=== PATIENT | male | born 1955 | race Caucasian/White ===

== ENCOUNTER → 2016-11-15 | Day surgery (SDC) | payer BC ==
[~2016-11-15] VITALS: Ht 190.5 cm; Wt 111.4 kg
[~2016-11-15] MED LIST: GLUCTAB7 PO; OMEG10007 PO; SIMV40TA2 PO; SODIUM CHLORIDE 0.9% 500ML 500 ML IV ONE
[2016-11-15 13:21] VITALS: Ht 190.5 cm; Wt 111.4 kg
[2016-11-15 13:33] VITALS: TEMP 36.4
--- NOTE | 2016-11-15 13:53 | Endo History and Physical ---
History & Physical Date of Service: Nov 15, 2016. Chief Complaint: SCREENING COLONOSCOPY Referring Physician: DR. ORTEGA History of Present Illness 61 yo CM who presents for screening colonoscopy. Past Surgical History Hx Cardiac Surgery: No Hx Internal Defibrillator: No Hx Pacemaker: No Hx Abdominal Surgery: Yes (ABDOMINAL SURGERY AGE 5 OR 6) Hx of Implantable Prosthesis: No Hx Post-Op Nausea and Vomiting: No Hx Cancer Surgery: No Hx Thoracic Surgery: No Hx Orthopedic: No Hx Urinary Tract Surgery: Yes (VASECTOMY) Family History None Social History Smoking Status: Light Tobacco Smoker Hx Substance Use: No Hx Alcohol Use: Yes (OCCASIONAL) Allergies Coded Allergies: No Known Allergies (Unverified , 11/15/16) Current Medications Reported Home Medications Medications Dose Route/Sig Max Daily Dose Days Date Category Glucosamine Chondroitin (Tmlfalgolgg-Zszqflhkyqi-Qxr C-) 1 Tab Tab 2 Tabs PO QAM 11/06/16 Reported [place]-3 (Fish Oil) 1 Ea Cap 2 Cap PO QAM 11/06/16 Reported Zocor (Simvastatin) 40 Mg Tab 40 Mg PO HS 11/06/16 Reported Vital Signs Weight (Kilograms): 111.36 Height (Feet): 6 Height (Inches): 3 Date Time Temp Pulse Resp B/P Pulse Ox O2 Delivery O2 Flow Rate FiO2 11/15/16 13:33 36.4 70 18 122/91 96 Room Air Physical Exam General Appearance: WD/WN, no apparent distress Respiratory/Chest: Auscultation: breath sounds normal Cardiovascular: Heart Auscultation: RRR Abdomen: Bowel Sounds: normal Inspection & Palpation: soft, non-distended, no tenderness, guarding & rebound Assessment and Plan Assessment: 61 yo CM who presents for screening colonoscopy. Plan: Proceed with colonoscopy.
--- NOTE | 2016-11-15 14:39 | GI REPORT ---
Procedure Date: 11/15/2016 1:41 PM Procedure: Colonoscopy Indications: Screening for colorectal malignant neoplasm Medicines: Monitored Anesthesia Care Complications: No immediate complications. Estimated Blood Loss: Estimated blood loss: none. Procedure: Pre-Anesthesia Assessment: - Prior to the procedure, a History and Physical was performed, and patient medications and allergies were reviewed. The patient's tolerance of previous anesthesia was also reviewed. The risks and benefits of the procedure and the sedation options and risks were discussed with the patient. All questions were answered, and informed consent was obtained. Prior Anticoagulants: The patient has taken no previous anticoagulant or antiplatelet agents. ASA Grade Assessment: II - A patient with mild systemic disease. After reviewing the risks and benefits, the patient was deemed in satisfactory condition to undergo the procedure. After I obtained informed consent, the scope was passed under direct vision. Throughout the procedure, the patient's blood pressure, pulse, and oxygen saturations were monitored continuously. The scope was introduced through the anus and advanced to the terminal ileum. The colonoscopy was performed without difficulty. The patient tolerated the procedure well. The quality of the bowel preparation was fair. The terminal ileum, ileocecal valve, appendiceal orifice, and rectum were photographed. Findings: Two sessile polyps were found in the rectum. The polyps were 2 to 3 mm in size. These polyps were removed with a cold biopsy forceps. Resection and retrieval were complete. Non-bleeding internal hemorrhoids were found during retroflexion. The hemorrhoids were small. A moderate amount of liquid stool was found in the transverse colon and in the ascending colon, interfering with visualization. Lavage of the area was performed using a large amount of normal saline, resulting in clearance with fair visualization. Impression: - Two 2 to 3 mm polyps in the rectum, removed with a cold biopsy forceps. Resected and retrieved. - Non-bleeding internal hemorrhoids. - Stool in the transverse colon and in the ascending colon. Recommendation: - Resume previous diet. - Continue present medications. - Repeat colonoscopy for surveillance based on pathology results. - Return to primary care physician as previously scheduled. Nabeel Watson DO 11/15/2016 2:39:19 PM This report has been signed electronically. Note Initiated On: 11/15/2016 1:41 PM I attest to the content of the Intraoperative Record and orders documented therein, exceptions below
--- NOTE | 2016-11-15 14:44 | Discharge Instructions ---
Endoscopy Patient Instructions Date / Procedure(s) Performed Nov 15, 2016. Colonoscopy Allergy Information Coded Allergies: No Known Allergies (Unverified , 11/15/16) Discharge Date / Findings Nov 15, 2016. Rectal polyps x2 Internal hemorrhoids Medication Instructions OK to resume all medications today as prescribed Reported Home Medications Medications Dose Route/Sig Max Daily Dose Days Date Category Glucosamine Chondroitin (Fy[place]ugskv-Crdovcusgjp-Zba C-) 1 Tab Tab 2 Tabs PO QAM 11/06/16 Reported [place]-3 (Fish Oil) 1 Ea Cap 2 Cap PO QAM 11/06/16 Reported Zocor (Simvastatin) 40 Mg Tab 40 Mg PO HS 11/06/16 Reported Provider Instructions Activity Restrictions - No exercising or heavy lifting for 24 hours. - Do not drink alcohol the day of the procedure. - Do not drive a car or operate machinery until the day after the procedure. - Do not make any important decisions or sign important papers in 24 hours after the procedure. Following Day: - Return to full activity which may include returning to work/school. Diet Start your diet with liquids and light foods (jello, soup, juice, toast). Then eat your usual diet if not nauseated. Treatment For Common After Affects For mild abdominal pain, bloating, or excessive gas: - Rest - Eat lightly - Lie on right side Follow-Up Information Follow-up with DR. ORTEGA as scheduled Anesthesia Information What You Should Know You have had a procedure that required some medicine to reduce anxiety and discomfort. This treatment is called moderate sedation. After receiving the treatment, you may be sleepy, but you will be able to breathe on your own. The effects of the treatment may last for several hours. Follow these instructions along with Activity/Diet recommendations noted above: * Do NOT do anything where dizziness or clumsiness would be dangerous. * Rest quietly at home today, then you can be up and about tomorrow. * Have a responsible person stay with you the rest of today. * You may have had an I.V. today. If so, you may take the dressing off later today. Recommendations Call your doctor if: * Trouble breathing * Continuous vomiting for more than 24 hours * Temperature above 101 degrees * Severe abdominal pain or bloating * Pain not relieved by pain medicine ordered * There is increased drainage or redness from any incision * A large amount of rectal bleeding greater than 2-3 tablespoons. (If you had a polyp/s removed or have hemorrhoids, a small amount of blood - from the rectum is to be expected.) * You have any unanswered questions or concerns. IN THE EVENT OF A SERIOUS EMERGENCY, GO TO THE NEAREST EMERGENCY ROOM Your discharge instructions were prepared by provider Nabeel Watson. Patient Instructions Signature Page David Shipman Patient (or Guardian) Signature/Date: I have read and understand the instructions given to me by my caregivers. Caregiver/RN/Doctor Signature/Date: The above-named patient and/or guardian has received patient instructions on this date. + Original Patient Signature Page (only) stays with chart. Please make copy for patient.
[2016-11-15 14:50] VITALS: BP 126/78; PULSE 63; O2SAT 97
--- NOTE | 2016-11-15 14:59 | Anesthesiology Progress Note ---
Anesthesia Post Op Note Date & Time Nov 15, 2016 at 14:58 Vital Signs Pain Intensity: 0 Vital Signs Past 12 Hours Date Time Temp Pulse Resp B/P Pulse Ox O2 Delivery O2 Flow Rate FiO2 11/15/16 14:35 62 18 123/75 97 Room Air 11/15/16 14:20 65 18 128/75 96 Room Air 11/15/16 13:33 36.4 70 18 122/91 96 Room Air Notes Mental Status: alert / awake / arousable, participated in evaluation Pt Amnestic to Procedure: Yes Nausea / Vomiting: adequately controlled Pain: adequately controlled Airway Patency, RR, SpO2: stable & adequate BP & HR: stable & adequate Hydration State: stable & adequate Anesthetic Complications: no major complications apparent
== END | disposition home or self-care (01) ==
LOC: C.GI 12:45
PROVIDERS: ATTEND Internal Medicine
DX: Z12.11 Encounter for screening for malignant neoplasm of colon (principal); D12.8 Benign neoplasm of rectum; Z72.0 Tobacco use; K64.8 Other hemorrhoids

== ENCOUNTER → 2017-01-05 | Outpatient (CLI) | payer BC ==
[~2017-01-05] MED LIST changes: -SODIUM CHLORIDE 0.9% 500ML 500 ML IV ONE
[2017-01-05 12:29] LABS: BASO % 0.9 %; BASO ABS # 0.07 K/uL (0-0.2); COMPLETE YES; EOS % 4.7 %; HEMATOCRIT 45.7 % (42-52); IG% 0.5 %; LYMPH % 22.6 %; LYMPH ABS # 1.83 K/uL (1.2-3.4); MEAN CORPUSCULAR HEMOGLOBIN 30.8 pg (25-34); MEAN CORPUSCULAR HGB CONC 33.5 g/dl (32-36); MEAN PLATELET VOLUME 9.9 fL (7.4-10.4); MONO % 11.4 %; NEUT % 59.9 %; PLATELET COUNT 206 K/uL (130-400); RED BLOOD COUNT 4.97 M/uL (4.7-6.1); WHITE BLOOD COUNT 8.08 K/uL (4.8-10.8)
[2017-01-05 12:55] LABS: BLOOD UREA NITROGEN 26 mg/dl (7-18); BUN/CREATININE RATIO 17.5 (10-20); CARBON DIOXIDE 27 mmol/L (21-32); CHLORIDE 107 mmol/L (98-107); CHOLESTEROL 141 mg/dl (0-200); GLUCOSE 91 mg/dl (70-99); POTASSIUM 4.8 mmol/L (3.5-5.1); SODIUM 140 mmol/L (136-145)
[2017-01-05 13:05] LABS: CALCIUM 9.4 mg/dl (8.5-10.1)
[2017-01-05 13:10] LABS: ALB/GLOB RATIO 1.3 (0.9-2); ALKALINE PHOSPHATASE 103 U/L (45-117); ALT/SGPT 35 U/L (12-78); AST/SGOT 25 U/L (15-37); CHOLESTEROL/HDL RATIO 3.1; HDL CHOLESTEROL 45 mg/dl; LDL CHOLESTEROL CALCULATED 74 mg/dl; PROSTATE SPECIFIC ANTIGEN 0.509 ng/ml (0.000-4.000); TRIGLYCERIDES 109 mg/dl (0-150); VERY LOW DENSITY LIPOPROT CALC 22 mg/dl
== END | disposition home or self-care (01) ==
LOC: C.LABBFT 07:40
PROVIDERS: ATTEND Internal Medicine
DX: N28.9 Disorder of kidney and ureter, unspecified (principal); Z12.5 Encounter for screening for malignant neoplasm of prostate; M10.9 Gout, unspecified; E78.5 Hyperlipidemia, unspecified; I10 Essential (primary) hypertension

== ENCOUNTER → 2017-04-17 | Outpatient (CLI) | payer BC ==
[2017-04-17 13:15] LABS: BLOOD UREA NITROGEN 24 mg/dl (7-18); BUN/CREATININE RATIO 19.6 (10-20); CALCIUM 8.9 mg/dl (8.5-10.1); CARBON DIOXIDE 26 mmol/L (21-32); CHLORIDE 109 mmol/L (98-107); GLUCOSE 95 mg/dl (70-99); POTASSIUM 4.1 mmol/L (3.5-5.1); SODIUM 141 mmol/L (136-145)
== END | disposition home or self-care (01) ==
LOC: C.LABBFT 08:07
PROVIDERS: ATTEND Internal Medicine
DX: N28.9 Disorder of kidney and ureter, unspecified (principal)

== ENCOUNTER 2020-01-17 03:04 | Inpatient (IN) ==
[2020-01-17 04:14] LABS: Basophils # (auto) 0.02 K/uL (0-0.2); Basophils % (auto) 0.1 %; Eosinophils # (auto) 0.08 K/uL (0-0.5); Eosinophils % (auto) 0.6 %; Hematocrit (blood only) 46.2 % (42-52); Hemoglobin 15.4 g/dL (14.0-18.0); Immature Granulocytes # (auto) 0.08 K/uL (0.00-0.02); Immature Granulocytes % (auto) 0.6 %; Lymphocytes # (auto) 1.03 K/uL (1.2-3.4); Lymphocytes % (auto) 7.2 %; Mean Corpuscular Hemoglobin 30.7 pg (25-34); Mean Corpuscular Hgb Conc 33.3 g/dL (32-36); Mean Platelet Volume 10.2 fL (7.4-10.4); Monocytes # (auto) 0.92 K/uL (0.11-0.59); Monocytes % (auto) 6.4 %; Neutrophils # (auto) 12.22 K/uL (1.4-6.5); Neutrophils % (auto) 85.1 %; Platelet Count 216 K/uL (130-400); RDW Standard Deviation 43.4 fL (36.4-46.3); Red Blood Count 5.02 M/uL (4.7-6.1); White Blood Count 14.35 K/uL (4.8-10.8)
[2020-01-17 04:33] LABS: Albumin Level 3.7 gm/dl (3.4-5.0); BUN Creatinine Ratio 16.9 (10-20); Calcium 8.8 mg/dl (8.5-10.1); Creatinine Clr Calc Pharmacy 56.6 ml/min; Est GFR (African American) 44.2; Est GFR (Non-African American) 38.1; Magnesium 2.4 mg/dl (1.8-2.4); Potassium 3.7 mmol/L (3.5-5.1)
[2020-01-17 04:49] LABS: Albumin Globulin Ratio 1.2 (0.9-2); Bilirubin,Total 0.3 mg/dl (0.2-1); Globulin 3.2 gm/dl (2.5-4.0); Total Protein 6.9 gm/dl (6.4-8.2); Troponin I 0.073 ng/ml (0-0.045)
[2020-01-17 04:58] LABS: Partial Thromboplastin Ratio 0.9; Partial Thromboplastin Time 24.5 Seconds (21.0-31.0); Prothrombin Time 10.6 Seconds (9.0-12.0)
[2020-01-17] MEDS ORDERED: SODIUM CHLORIDE 0.9% 500 ML IV SCH (05:15)
--- NOTE | 2020-01-17 05:35 | Emergency Department Note ---
Impression & Plan Seizure, Elevated troponin ED Provider Note NAME: LEE ANN TALLEY AGE: 64 SEX: M ARRIVES VIA: Ambulance INFORMANT: Patient's and EMS ED PROVIDER(S): Jaja Mayberry DO CHIEF COMPLAINT: Altered mental status PLAN: Disposition: Admitted to the [facility] Condition: Stable MEDICAL DECISION MAKING: This is a 64-year-old male patient brought to the emergency department tonight by EMS with an altered mental status. The patient awoke from sleep to go to the bathroom and the heard him stumbling around in the bathroom. After he came out of the bathroom, she noted that he had urinated all about the floor. She then heard him in the bedroom making snoring breath sounds. She went to the bedroom and found him in a semi-responsive state with blood around his mouth. Upon EMS arrival, the patient was awake but confused and combative. They found his pupils to be pinpoint. They were able to establish an IV and administer 2 doses of Narcan with no change to his mental status. They contacted medical command and I give him orders to administer 2 mg of IV Ativan which did seem to help the patient's situation. His blood sugar was 116. CT scan of the brain was unremarkable. Seizure precautions were taken here in the emergency department. The patient was thought to have had a seizure at home and was postictal upon EMS arrival. EKG was normal here in the emergency department but he did have an elevated troponin. He denied any chest pain. I discussed the case with the [facility] and they will evaluate for further management. Triage Nursing notes reviewed and agree them. Additional history obtained from EMS Prior medical records reviewed Vital Signs: reviewed and remarkable for hypertension Differential diagnosis: CVA, TIA, hypoglycemia, alcohol intoxication, seizure, drug abuse, intracranial hemorrhage, or intracranial mass ER treatment provided: Seizure precautions were taken Diagnostics interpreted by me: ECG: Normal sinus rhythm at 93. No ischemia; no ST segment elevation; no ectopy Cardiac Monitoring: Normal sinus rhythm at 80 Laboratory studies: See below Imaging studies:as per Stat Rad CT head: No intracranial hemorrhage, mass-effect, or edema. Prominent lateral ventricles slightly out of proportion to the degree of volume loss. No acute infarct. No fracture. HPI: 64/M arrives for evaluation of altered mental status. The patient went to bed in usual state of health around 10:30 PM. The patient awoke around 2:30 AM to go to the bathroom. The heard him stumbling around the bathroom and found that he had urinated all around the toilet. He went back to bed and heard him and there was snoring respirations. She went to the bedroom, turned on the light, and found him with an altered mental status and blood around his mouth. EMS was called. Upon their arrival, the patient was more responsive but combative/violent. Blood sugar was 116. They established an IV lock administered Narcan and Ativan. In route to the hospital, his mental status improved. ROS: See above HPI for pertinent positives & negatives. A total of 10 systems reviewed and were otherwise negative. PAST MEDICAL HISTORY:See Below PAST SURGICAL HISTORY:See Below FAMILY HISTORY:See Below SOCIAL HISTORY:See Below HOME MEDICATIONS:See list ALLERGIES:None VITALS:See Below PHYSICAL EXAMINATION: HEENT: Head - normocephalic and atraumatic. Pupils are equal, round, and Reactive to light. Extraocular eye muscles are intact and sclera are anicteric. Ears - bilaterally patent canals with noninjected tympanic membranes and no evidence of hemotympanum. Nose - moist nasal mucosa without discharge. Mouth - moist buccal mucosa. Her bite verdin over both lateral aspects of the tongue. Oropharynx is nonerythematous and there is no tonsillar exudate or edema noted. There is some dried blood noted about both sides of the mouth. Neck: Supple; no JVD, nuchal rigidity, cervical lymphadenopathy, or auscultated bruits. Heart: Regular rate and rhythm. There is a normal S1 and S2 with no murmurs, clicks, or gallops appreciated. Lungs: Clear to auscultation bilaterally with no wheezes, rales, or rhonchi. Abdomen: Soft, completely nontender, nondistended, with good bowel sounds. There are no palpable pulsatile masses or hepatosplenomegaly. There is no guarding, rigidity, or rebound noted. Extremities: No evidence of cyanosis, clubbing, or edema. There are easily palpable peripheral pulses. Neuro:The patient is awake and alert, oriented to day, time, and place. Muscle strength is 5/5 in all 4 extremities. The patient has equal rental salesperson strength and equal pedal push and pull. There are no cerebellar signs. ED COURSE: Times/Reassessments: 0310: The patient was evaluated in room B1. A complete history and physical was performed. An order was placed for continuous cardiac monitoring. The patient remained in normal sinus rhythm at a rate of 72. The patient will go for a stat CT scan of the brain. Seizure precautions were taken. Department of Transportation paperwork will be filled out. Laboratory studies were drawn as above. A twelve-lead EKG was performed. The patient had no further seizure activity while here in the emergency department. The patient became more coherent throughout his stay in the emergency department and his mental status was back to normal. I kept the patient and his abreast of the situation. I discussed the case with the [facility] Hospital[facility] and they will evaluate for further management. Jaja Mayberry, Past Med/Surg History Medical History (Updated 01/17/20 @ 06:20 by Mitesh Alfredo MD) CKD (chronic kidney disease) stage 3, GFR 30-59 ml/min Gout Social History Preferred Language: Mauritanian Communication Ability: Effective Founder Ceo & President Required: No Beliefs That Will Affect Care: None Current Living Situation: Spouse Feels Safe at Home: Yes Smoking Status: Former smoker Second Hand Exposure: No ; Hx Alcohol Use: No Hx Substance Use: No Allergies Allergies Allergy/AdvReac Type Severity Reaction Status Date / Time No Known Allergies Allergy Unverified 01/17/20 03:28 Home Meds Home Medications Medication Instructions Recorded Confirmed omega-3 fatty acids 1,000 mg 2,000 mg PO DAILY cap 03/10/19 01/17/20 capsule colchicine 0.6 mg tablet See Rx Instructions PO DAILY PRN 05/30/19 01/17/20 tab cyclobenzaprine 10 mg tablet 10 mg PO HS PRN 05/30/19 01/17/20 Hempvanna Cream 1 applic TOPICAL UD PRN 01/17/20 Previous Rx's Medication Instructions Recorded simvastatin 40 mg tablet 40 mg PO HS #90 tab 04/22/19 Results & Data (ED) Vital Signs Vital Signs - 24 hr 01/17/20 03:12 01/17/20 04:04 01/17/20 04:48 Temperature 36.6 C Temperature Source Oral Pulse Rate 97 H Pulse Rate [Finger] 83 81 Respiratory Rate 23 21 Blood Pressure 128/73 Blood Pressure [Right Arm] 122/80 153/101 H Blood Pressure Mean 91 Blood Pressure Mean [Right Arm] 94 118 Blood Pressure Position [Right Arm] Lying Pulse Oximetry 90 95 96 Oxygen Delivery Method Room Air Nasal Cannula Room Air Oxygen Flow Rate 2 Sepsis Recent Fever Within 48 Hours No Sepsis Action Taken by Nursing No Action Required 01/17/20 05:47 Temperature Temperature Source Pulse Rate Pulse Rate [Finger] 80 Respiratory Rate Blood Pressure Blood Pressure [Right Arm] 162/104 H Blood Pressure Mean Blood Pressure Mean [Right Arm] 123 Blood Pressure Position [Right Arm] Pulse Oximetry 98 Oxygen Delivery Method Room Air Oxygen Flow Rate Sepsis Recent Fever Within 48 Hours Sepsis Action Taken by Nursing Laboratory Data Result diagrams: 01/17/20 03:55 01/17/20 03:55 Lab Results 01/17/20 01/17/20 01/17/20 Range/Units 03:55 03:55 03:55 WBC 14.35 H (4.8-10.8) K/uL RBC 5.02 (4.7-6.1) M/uL Hgb 15.4 (14.0-18.0) g/dL Hct 46.2 (42-52) % MCV 92.0 (80-100) fL MCH 30.7 (25-34) pg MCHC 33.3 (32-36) g/dL RDW Std Deviation 43.4 (36.4-46.3) fL RDW Coeff of Marlene 13.0 (11.5-14.5) % Plt Count 216 (130-400) K/uL MPV 10.2 (7.4-10.4) fL Immature Gran % (Auto) 0.6 % Neut % (Auto) 85.1 % Lymph % (Auto) 7.2 % [place] % (Auto) 6.4 % Eos % (Auto) 0.6 % Baso % (Auto) 0.1 % Immature Gran # (Auto) 0.08 H (0.00-0.02) K/uL Neut # (Auto) 12.22 H (1.4-6.5) K/uL Lymph # (Auto) 1.03 L (1.2-3.4) K/uL [place] # (Auto) 0.92 H (0.11-0.59) K/uL Eos # (Auto) 0.08 (0-0.5) K/uL Baso # (Auto) 0.02 (0-0.2) K/uL PT Cancelled INR Cancelled APTT Cancelled PTT Ratio Cancelled Sodium 141 (136-145) mmol/L Potassium 3.7 (3.5-5.1) mmol/L Chloride 110 H (98-107) mmol/L Carbon Dioxide 22 (21-32) mmol/L Anion Gap 9.0 (3-11) BUN 31 H (7-18) mg/dl Creatinine 1.82 H (0.6-1.4) mg/dl Est Cr Clr Drug Dosing 56.6 ml/min Est GFR ( Amer) 44.2 Est GFR (Non-Af Amer) 38.1 BUN/Creatinine Ratio 16.9 (10-20) Glucose 107 H (70-99) mg/dl Calcium 8.8 (8.5-10.1) mg/dl Magnesium 2.4 (1.8-2.4) mg/dl Total Bilirubin 0.3 (0.2-1) mg/dl AST 21 (15-37) U/L ALT 31 (12-78) U/L Alkaline Phosphatase 106 (45-117) U/L Troponin I 0.073 H* (0-0.045) ng/ml Total Protein 6.9 (6.4-8.2) gm/dl Albumin 3.7 (3.4-5.0) gm/dl Globulin 3.2 (2.5-4.0) gm/dl Albumin/Globulin Ratio 1.2 (0.9-2) 01/17/20 Range/Units 04:29 WBC (4.8-10.8) K/uL RBC (4.7-6.1) M/uL Hgb (14.0-18.0) g/dL Hct (42-52) % MCV (80-100) fL MCH (25-34) pg MCHC (32-36) g/dL RDW Std Deviation (36.4-46.3) fL RDW Coeff of Marlene (11.5-14.5) % Plt Count (130-400) K/uL MPV (7.4-10.4) fL Immature Gran % (Auto) % Neut % (Auto) % Lymph % (Auto) % [place] % (Auto) % Eos % (Auto) % Baso % (Auto) % Immature Gran # (Auto) (0.00-0.02) K/uL Neut # (Auto) (1.4-6.5) K/uL Lymph # (Auto) (1.2-3.4) K/uL [place] # (Auto) (0.11-0.59) K/uL Eos # (Auto) (0-0.5) K/uL Baso # (Auto) (0-0.2) K/uL PT 10.6 INR 1.0 APTT 24.5 PTT Ratio 0.9 Sodium (136-145) mmol/L Potassium (3.5-5.1) mmol/L Chloride (98-107) mmol/L Carbon Dioxide (21-32) mmol/L Anion Gap (3-11) BUN (7-18) mg/dl Creatinine (0.6-1.4) mg/dl Est Cr Clr Drug Dosing ml/min Est GFR ( Amer) Est GFR (Non-Af Amer) BUN/Creatinine Ratio (10-20) Glucose (70-99) mg/dl Calcium (8.5-10.1) mg/dl Magnesium (1.8-2.4) mg/dl Total Bilirubin (0.2-1) mg/dl AST (15-37) U/L ALT (12-78) U/L Alkaline Phosphatase (45-117) U/L Troponin I (0-0.045) ng/ml Total Protein (6.4-8.2) gm/dl Albumin (3.4-5.0) gm/dl Globulin (2.5-4.0) gm/dl Albumin/Globulin Ratio (0.9-2) Administered Medications Discontinued Medications Sodium Chloride (Nss) 500 mls @ 125 mls/hr IV .Q4H RYAN Stop: 02/16/20 05:14 Last Admin: 01/17/20 05:10 Dose: 125 mls/hr Documented by: [id number] Discharge Plan Visit Data *Final* Discharge Date/Time: 01/17/20 06:45 Chief Complaint: Neuro Symptoms/Deficit Stated Complaint: NEURO SYMPTOMS ED Provider: Jaja Mayberry Discharge Problem: Seizure, Elevated troponin Patient Disposition: Admitted As Inpatient Discharge Instructions Interventions: ED Discharge Assessment Last Done: 01/17/20 06:45
--- NOTE | 2020-01-17 06:27 | History & Physical Report ---
Date of Service January 17, 2020 Assessment & Plan (1) Episode of confusion: Episode of confusion- Differential including CVA versus TIA versus seizure-like activity. Order set stroke without TPA protocol CT of head without contrast was negative. Unable to order CTAs due to decreased GFR. Order MRI of brain without contrast Order MRA of head without contrast Order carotid Dopplers Order EEG Consult neurology Present on Admission?: Yes (2) Seizure-like activity: Report of patient biting his tongue toward the end of the event. No loss of bowel or bladder control Order an EEG. Consult neurology Present on Admission?: Yes (3) Elevated troponin: Troponin 0.073 upon admission. The patient will be admitted to telemetry for serial cardiac enzymes, serial EKG's, cardiac rhythm monitoring and a 2-D echocardiogram with Dopplers. Aspirin 81 mg daily chewable Present on Admission?: Yes (4) Memory loss of unknown cause: Main differential including CVA versus TIA versus seizure activity. reports that patient is back to his baseline at this point, and patient feels so as well. Present on Admission?: Yes (5) Acute kidney injury superimposed on chronic kidney disease: Creatinine 1.82 upon admission, with baseline 1.40-1.54. Place on NSS at 80 mils per hour, and repeat laboratories in the a.m. GFR is 38.1, which makes him borderline for CT dye studies. Present on Admission?: Yes (6) Hypercholesteremia: Continue simvastatin 40 mg at bedtime. Check a fasting lipid panel Present on Admission?: Yes (7) Ambulatory dysfunction: Ambulatory dysfunction was noted as part of event, as above, unclear if related to a pre-seizure activity or CVA/TIA Present on Admission?: Yes (8) Gout: Colchicine 0.6 mg daily as needed to flare Present on Admission?: Yes (9) Osteoarthritis involving joints of both upper arms: Patient has had more of a problem with his left shoulder. He does report his right shoulder is a little bit sore from being taken out to the ambulance, but has full range of motion and function. Present on Admission?: Yes History of Present Illness Chief Complaint: Patient presents to the emergency department with complaint of disorientation, ambulatory dysfunction, memory loss for an episode that occurred after he went to sleep and then awoke to go to the bathroom. Primary Care Provider: David Ramsay MD The patient is a 64-year-old male with a past medical history including gout, hyperlipidemia, muscle spasm and arthritis of the shoulders. He reports that he had a usual day yesterday, went to sleep tonight as usual, and when he awoke to go the bathroom he felt disoriented, had difficulty walking to the bathroom, and his reports that he completely missed the commode while he was urinating. He denies any focal weakness in arms or legs, numbness or tingling and denies any chest pain or shortness of breath. He does report his right shoulder is a little bit sore, but he thinks that was from being taken out of the house into the ambulance. He denies any previous occurrence of any such symptoms. Allergies Allergy/AdvReac Type Severity Reaction Status Date / Time No Known Allergies Allergy Unverified 01/17/20 03:28 Home Medications Home Medications Medication Instructions Recorded Confirmed Type omega-3 fatty acids 1,000 mg 2,000 mg PO DAILY cap 03/10/19 01/17/20 History capsule simvastatin 40 mg tablet 40 mg PO HS #90 tab 04/22/19 01/17/20 Rx colchicine 0.6 mg tablet See Rx Instructions PO DAILY PRN 05/30/19 01/17/20 History tab cyclobenzaprine 10 mg tablet 10 mg PO HS PRN 05/30/19 01/17/20 History Hempvanna Cream 1 applic TOPICAL UD PRN 01/17/20 History Past Med/Surg History Medical History (Updated 01/17/20 @ 06:20 by Mitesh Alfredo MD) CKD (chronic kidney disease) stage 3, GFR 30-59 ml/min Gout Social History Feels Safe at Home: Yes Smoking Status: Never smoker Review of Systems Review of Systems: The patient denies chest pain, palpitations, shortness of breath, dyspnea on exertion, cough, lower extremity swelling, sore throat, fevers, chills, sweats, weight change, fatigue, nausea, vomiting, diarrhea , constipation, abdominal pain, pelvic pain, blood in urine or stool, dysuria, urinary frequency or urgency, headache, loss of consciousness, rash, abnormal bruising or bleeding, focal weakness, numbness or tingling in arms or legs, generalized arthralgias or myalgias, back or neck pain, or night sweats. The review of systems is otherwise negative other than for that already noted above, and at least 10 systems have been reviewed. Physical Exam Physical Exam: The patient is awake, alert and oriented 3, well developed and well nourished, normocephalic and atraumatic, lying in bed and in no acute distress. HEENT--PERRL, EOMI, mucous membranes and oropharynx dry. Neck--supple. No JVD. No bruits. Thyroid normal, trachea midline, no adenopathy. Heart--normal S1 and S2. No murmurs, rubs or gallops. Lungs--clear bilaterally, no respiratory distress, no accessory muscle use. Abdomen--normal bowel sounds and soft. Nontender. Nondistended. Obese Extremities--no cyanosis or clubbing. No edema. There are good distal pulses b/l. Dermatologic--normal skin turgor, normal color, no abnormal lymph nodes, no rash. Neurologic--cranial nerves II through XII grossly intact. Rheumatologic--normal range of motion. Psychiatric--normal affect. Results & Data Results & Data ([facility]) Vital Signs (Past 12 Hours) Vital Signs Temp Pulse Pulse Resp BP BP Pulse Ox 01/17/20 05:47 80 162/104 H 98 01/17/20 04:48 81 153/101 H 96 01/17/20 04:04 83 21 122/80 95 01/17/20 03:12 97.9 F 97 H 23 128/73 90 Laboratory Results Laboratory Results WBC 14.35 K/uL (4.8-10.8) H 01/17/20 03:55 RBC 5.02 M/uL (4.7-6.1) 01/17/20 03:55 Hgb 15.4 g/dL (14.0-18.0) 01/17/20 03:55 Hct 46.2 % (42-52) 01/17/20 03:55 MCV 92.0 fL (80-100) 01/17/20 03:55 MCH 30.7 pg (25-34) 01/17/20 03:55 MCHC 33.3 g/dL (32-36) 01/17/20 03:55 RDW Std Deviation 43.4 fL (36.4-46.3) 01/17/20 03:55 RDW Coeff of Marlene 13.0 % (11.5-14.5) 01/17/20 03:55 Plt Count 216 K/uL (130-400) 01/17/20 03:55 MPV 10.2 fL (7.4-10.4) 01/17/20 03:55 Immature Gran % (Auto) 0.6 % 01/17/20 03:55 Neut % (Auto) 85.1 % 01/17/20 03:55 Lymph % (Auto) 7.2 % 01/17/20 03:55 [place] % (Auto) 6.4 % 01/17/20 03:55 Eos % (Auto) 0.6 % 01/17/20 03:55 Baso % (Auto) 0.1 % 01/17/20 03:55 Immature Gran # (Auto) 0.08 K/uL (0.00-0.02) H 01/17/20 03:55 Neut # (Auto) 12.22 K/uL (1.4-6.5) H 01/17/20 03:55 Lymph # (Auto) 1.03 K/uL (1.2-3.4) L 01/17/20 03:55 [place] # (Auto) 0.92 K/uL (0.11-0.59) H 01/17/20 03:55 Eos # (Auto) 0.08 K/uL (0-0.5) 01/17/20 03:55 Baso # (Auto) 0.02 K/uL (0-0.2) 01/17/20 03:55 PT 10.6 Seconds (9.0-12.0) 01/17/20 04:29 INR 1.0 (0.9-1.1) 01/17/20 04:29 APTT 24.5 Seconds (21.0-31.0) 01/17/20 04:29 PTT Ratio 0.9 01/17/20 04:29 Sodium 141 mmol/L (136-145) 01/17/20 03:55 Potassium 3.7 mmol/L (3.5-5.1) 01/17/20 03:55 Chloride 110 mmol/L (98-107) H 01/17/20 03:55 Carbon Dioxide 22 mmol/L (21-32) 01/17/20 03:55 Anion Gap 9.0 (3-11) 01/17/20 03:55 BUN 31 mg/dl (7-18) H 01/17/20 03:55 Creatinine 1.82 mg/dl (0.6-1.4) H 01/17/20 03:55 Est Cr Clr Drug Dosing 56.6 ml/min 01/17/20 03:55 Est GFR ( Amer) 44.2 01/17/20 03:55 Est GFR (Non-Af Amer) 38.1 01/17/20 03:55 BUN/Creatinine Ratio 16.9 (10-20) 01/17/20 03:55 Glucose 107 mg/dl (70-99) H 01/17/20 03:55 Calcium 8.8 mg/dl (8.5-10.1) 01/17/20 03:55 Magnesium 2.4 mg/dl (1.8-2.4) 01/17/20 03:55 Total Bilirubin 0.3 mg/dl (0.2-1) 01/17/20 03:55 AST 21 U/L (15-37) 01/17/20 03:55 ALT 31 U/L (12-78) 01/17/20 03:55 Alkaline Phosphatase 106 U/L (45-117) 01/17/20 03:55 Troponin I 0.073 ng/ml (0-0.045) H* 01/17/20 03:55 Total Protein 6.9 gm/dl (6.4-8.2) 01/17/20 03:55 Albumin 3.7 gm/dl (3.4-5.0) 01/17/20 03:55 Globulin 3.2 gm/dl (2.5-4.0) 01/17/20 03:55 Albumin/Globulin Ratio 1.2 (0.9-2) 01/17/20 03:55 Diagnostic Findings [facility] Patient: DAVID TALLEY (Male) : 53 Status: ER Date: 01/17/20 03:47 Room #: History: seizure like activity dg Slices: 82 Priors: Tech: Osmar Dubose @ [phone] Exams: CT HEAD Accession Numbers: [id number] Preliminary Findings Only See Final Report For Complete Findings CT HEAD: No intracranial hemorrhage, mass-effect, or edema. Prominent lateral ventricles slightly out of proportion to the degree of volume loss. No acute infarct. No fracture. Radiologist: Ba Rodriguez MD Study ready at 03:49 and initial results transmitted at 03:53 *This report constitutes a preliminary interpretation only. Non-acute findings felt to be unrelated to the clinical presentation may not be discussed in this report. The study will be interpreted and a final report will be generated by the local Radiologist the following shift. To reach the [facility] radiology d epartment call [phone]. If a discrepancy is found between the preliminary and final interpretations of this study, please notify us via our Client Portal at [email or web address] can also fax this report with a description of the discrepancy, or include the final report, to our daytime fax number [phone].If faxing, please indicate the severity of discrepancy using one of the following categories: [ ] 1 - Agree/Informational [ ] 2 - Unlikely to Affect Management [ ] 3 - Possible Eventual Change of Management [ ] 4 - Probable Immediate Change of Management For all other patient related information, please fax us at [phone]. [id number] Code Status & VTE Plan Code Status Full code VTE Prophylaxis Plan VTE Prophylaxis will be ordered: Yes PG Care Time/CCT Total # of Minutes Spent Total Time Spent with Patient: Total time spent is greater than 50% in coordination of care (as documented) at patient's floor/unit and/or counseling patient: Coding Level of Care Code 14913 Initial Inpt Care Lvl 3 Diagnoses Episode of confusion R41.0 Seizure-like activity R56.9 Elevated troponin R79.89 Memory loss of unknown cause R41.3 Acute kidney injury superimposed on chronic kidney disease N17.9; N18.9 Hypercholesteremia E78.00 Ambulatory dysfunction R26.2 Gout M10.9 Osteoarthritis involving joints of both upper arms M19.021; M19.022
--- NOTE | 2020-01-17 07:27 | CT Scan Report ---
CT OF THE HEAD WITHOUT CONTRAST CLINICAL HISTORY: Stroke evaluation. Seizure-like activity. COMPARISON STUDY: No previous studies for comparison. CT DOSE: 767.83 mGy.cm TECHNIQUE: Helical axial images of the head were obtained without IV contrast. Automated exposure con trol was utilized for the study. A dose lowering technique was utilized adhering to the principles o f ALARA. FINDINGS: No acute intracranial hemorrhage, midline shift or mass effect is present. There is mild di latation of the occipital horns of the lateral ventricles. This is likely due to volume loss. White m atter hypodensity suggests small vessel disease. The basilar cisterns are patent. There are no extra axial collections. There are no findings to suggest acute dural sinus thrombosis or acute territorial infarct. There are no significant calvarial abnormalities. Visualized portions of the sinuses and ma stoid air cells are clear. IMPRESSION: No acute intracranial findings. ACT 112: Negative or not required by law. Electronically signed by: Greg Doty M.D. 01/17/2020 7:26 AM
[2020-01-17] MEDS ORDERED: PHARMACIST DISCHARGE MED REC CONSULT PRN (07:32)
[2020-01-17] MEDS: SODIUM CHLORIDE 0.9% 1000ML 1,000 ML IV SCH ×2 (08:13→20:09)
[2020-01-17 08:30] LABS: Estimated Average Glucose 103 mg/dl; Hemoglobin A1C 5.2 % (4.5-5.6)
--- NOTE | 2020-01-17 09:05 | Electrocardiogram Report ---
Test Reason : Blood Pressure : / mmHG Vent. Rate : 093 BPM Atrial Rate : 093 BPM P-R Int : 156 ms QRS Dur : 096 ms QT Int : 346 ms P-R-T Axes : 039 053 028 degrees QTc Int : 430 ms Normal sinus rhythm Normal ECG When compared with ECG of 09-SEP-2006 18:00, No significant change was found Confirmed by Sandip Dyer ([id number]) on 01/17/2020 9:05:29 AM Referred By: REFERRED SELF Confirmed By:Sandip Dyer
--- NOTE | 2020-01-17 09:25 | Neurology Consultation ---
Date of Consultation January 17, 2020 Assessment & Plan (1) Seizure-like activity: Possible isolated nocturnal convulsion. The antecedent circumstances are somewhat unusual and include what sounds like incomplete arousal with transient sleep paralysis, followed by urinating on the bathroom floor, with the patient later found by his , back in bed, difficult to arouse, with evidence of a significant right-sided tongue laceration, confusion, and combativeness per EMS report. He has an elevated troponin and evidence of acute kidney injury. His CT of the head reveals chronic small vessel disease and mild central atrophy but is otherwise unremarkable. An ischemic stroke is not excluded. An episode of cerebral hypoperfusion due to a cardiac cause is not excluded. An adverse reaction to this patient's topical hemp product or other toxic exposure is not excluded. Agree with additional neurological testing as ordered including MRI and MRA of the brain and EEG. However, I would not start an anticonvulsant at this time. Follow-up with echocardiogram. Consider additional cardiac evaluation in light of rising troponins. Consider starting daily low-dose aspirin. History of Present Illness Reason for Consultation: Episode of confusion, stroke versus seizure Requesting Physician: Mitesh Alfredo MD Attending Physician: Mitesh Alfredo MD History of Present Illness The patient is a 64-year-old male with a chief complaint of transient alteration in mental status. The patient states that he went to bed at around 10 PM but recalls awakening several hours later to urinate. He indicates that he had considerable difficulty getting up out of bed and states that it felt like someone was sitting on top of him. He was eventually able to get up out of bed on his own and walk to the bathroom. He remembers feeling a little unsteady on his feet. He remembers urinating and is aware that he missed the commode to some extent. He recalls walking back to bed on his own. He is otherwise amnestic for anything else that may have happened but does remember being evaluated in the emergency department. He does complain of some right shoulder soreness and mild tongue soreness. He has a significant laceration along the right side of his tongue. He continues to report a feeling of unsteadiness on his feet but has been able to get up out of bed on his own and ambulate at bedside to a limited degree. He denies any dizziness, vertigo, diplopia, or headache. He does complain of a recent gout flareup for which he had contacted his PCP for a medication refill but was unable to get the prescription until he had a follow-up visit. He reports that he has been using a topical hemp product for chronic joint pain. He denies any recent significant illnesses, no fevers, no recent infections. He does not have a history of seizure disorder, TIA, or stroke. He has a history of hypercholesterolemia for which he takes atorvastatin. He has been working part-time for the city and remains physically active and denies any major chronic health issues. He has an elevated troponin. An electrocardiogram reveals a normal sinus rhythm and is otherwise unremarkable. A CT of the head reveals chronic small vessel disease and mild enlargement of the occipital horns of the lateral ventricles. Additional neurological testing including MRI/a of the brain, carotid ultrasound, and EEG have been ordered. Family history: Patient denies a family history of seizure disorder, indicates that his father had a heart attack. Allergies Allergy/AdvReac Type Severity Reaction Status Date / Time No Known Allergies Allergy Unverified 01/17/20 03:28 Home Medications Home Medications Medication Instructions Recorded Confirmed Type omega-3 fatty acids 1,000 mg 2,000 mg PO DAILY cap 03/10/19 01/17/20 History capsule simvastatin 40 mg tablet 40 mg PO HS #90 tab 04/22/19 01/17/20 Rx colchicine 0.6 mg tablet See Rx Instructions PO DAILY PRN 05/30/19 01/17/20 History tab cyclobenzaprine 10 mg tablet 10 mg PO HS PRN 05/30/19 01/17/20 History Hempvanna Cream 1 applic TOPICAL UD PRN 01/17/20 History Patient History Medical History CKD (chronic kidney disease) stage 3, GFR 30-59 ml/min Gout Social History Preferred Language: Korean Communication Ability: Effective Miter Operator Required: No Beliefs That Will Affect Care: None Current Living Situation: Spouse Feels Safe at Home: Yes Smoking Status: Former smoker Second Hand Exposure: No ; Hx Alcohol Use: No Hx Substance Use: No Review of Systems Constitutional: no fever and no chills Eyes: no blind spots and no diplopia Ear, Nose, Mouth, Throat: + sinus pain/pressure; no ear pain and no hearing loss Respiratory: no cough and no dyspnea Cardiovascular: no chest pain and no palpitations Gastrointestinal: no abdominal pain, no nausea and no vomiting Genitourinary: no dysuria, no difficulty urinating and no urinary incontinence Musculoskeletal: + neck pain; no myalgia right shoulder pain Integumentary: no rash and no lesions Neurologic: as per Subjective / HPI and + unsteadiness; no headache(s) Psychiatric: no depression and no anxiety Hematologic / Lymphatic: no easy bleeding and no easy bruising Exam (Neuro) Constitutional: well developed and well nourished; no acute distress Eyes: normal visual shen by confrontation, PERRL, normal accommodation and EOM intact bilaterally; no fundoscopic abnormality, no nystagmus and no papilledema Cardiovascular: Vessels: normal carotid upstroke; no carotid bruit Neurologic: Oriented to:: Person, Place and Time Memory: Short Term Intact and Remote Intact Attention: Span Intact and Concentration Intact Language: Naming Objects and Repeating Phrases Speech Fluency: negative Dysarthria Speech Aphasia: negative Aphasia Fund of Knowledge: Current Events, Past History and Vocabulary Cranial Nerves: Normal II (Visual shen full to confrontation, visual acuity normal), III, IV, (Pupils equal round reactive to light and accommodation, eye movements normal), V (Facial sensation intact), VII (There is no facial droop or weakness), VIII (Hearing intact), IX, X (Palate elevates to midline), XI (Shoulder shrug intact) and XII (Tongue protrudes to midline) Motor Strength: Normal Lower Extremities and Normal Upper Extremities; negative Pronator Drift Motor Tone: Normal Lower Extremities and Normal Upper Extremities Muscle Bulk/Involuntary Movements: No Involuntary Movements; negative Muscle Atrophy Sensation: Light Touch Intact, Pain/Temperature Intact, Vibration Intact and Proprioception Intact Coordination: Normal; negative Limited Balance, Dysdiadochokinesia, Finger-Nose Abnormal and Heel-Vigil Abnormal Deep Tendon Reflexes: Rt Triceps: 2+, Lt Triceps: 2+, Rt Biceps: 2+, Lt Biceps: 2+, Rt Brachioradialis: 1+, Lt Brachioradialis: 1+, Rt Patellar: 3+, Lt Patellar: 3+, Rt Ankle: 2+ and Lt Ankle: 2+ Special Tests: negative Babinski Present Gait: Normal Station and Gait Results & Data ([facility]) Vital Signs (Past 12 Hours) Vital Signs Temp Pulse Pulse Resp BP BP Pulse Ox 01/17/20 07:18 36.8 C 75 20 163/95 H 98 01/17/20 06:45 84 18 154/100 H 95 01/17/20 05:47 80 162/104 H 98 01/17/20 04:48 81 153/101 H 96 01/17/20 04:04 83 21 122/80 95 01/17/20 03:12 36.6 C 97 H 23 128/73 90 Laboratory Results WBC 14.35, hemoglobin 15.4, hematocrit 46.2, platelet count 216, sodium 141, potassium 3.7, BUN 31, creatinine 1.82, glucose 107, hemoglobin A1c 5.2, calcium 8.8, magnesium 2.4, troponin 0 0.326. Lipid panel from May 2019: Triglycerides 176, cholesterol 163, LDL 87, VLDL 35, HDL 41. Diagnostic Findings CT of the head completed at the time of presentation negative for hemorrhage or acute process. There is mild dilatation of the occipital horns of the lateral ventricles likely due to volume loss as well as evidence of chronic small vessel ischemic disease. I reviewed the images as well as the radiologist's interpretation of this test. A carotid ultrasound reveals mild atherosclerotic plaque and is otherwise unremarkable. An electrocardiogram reveals a normal sinus rhythm, 93 bpm. Coding Level of Care Code 87778 Inpt Consult Level 5 Diagnoses Seizure-like activity R56.9
--- NOTE | 2020-01-17 09:37 | Ultrasound Report ---
CAROTID ARTERY ULTRASOUND CLINICAL HISTORY: CVA COMPARISON STUDY: None. TECHNIQUE: Real-time, grayscale, and color Doppler sonography of the carotid and vertebral arteries w as performed. Images were viewed in the transverse and longitudinal planes. FINDINGS: There is mild atherosclerotic plaque. Velocity measurements are listed below. COMMON CAROTID PEAK SYSTOLIC VELOCITY (CM/S): RIGHT 64 LEFT 74 ICA PEAK SYSTOLIC VELOCITY (CM/S): RIGHT 93 LEFT 79 Systolic ratios between the internal to common carotid arteries were normal. Antegrade flow is seen in the vertebral arteries. The external carotid arteries are patent. Due to IV, blood pressure was not obtained. IMPRESSION: Mild atherosclerotic plaque without evidence for a hemodynamically significant stenosis. ACT 112: Negative or not required by law. Electronically signed by: Greg Doty M.D. 01/17/2020 9:35 AM
--- NOTE | 2020-01-17 10:12 | Magnetic Resonance Report ---
MRA OF THE INTRACRANIAL CIRCULATION WITHOUT CONTRAST CLINICAL HISTORY: Possible cerebrovascular accident. Right-sided weakness and memory loss. COMPARISON STUDY: Head CT January 17, 2020. TECHNIQUE: Utilizing a 1.5 Camila magnet and 3-D [id number] technique, unenhanced MRA of the intra cranial circulation was obtained. FINDINGS: Please note that the MRI of the brain will be reported separately. The bilateral M1, M2, A1 and A2 segments are patent. No intraluminal thrombus or vessel cut off is identified. No significant stenosis is noted within the major intracranial vessels. An anterior communicating artery is present . The left vertebral artery is dominant. The basilar and bilateral posterior cerebral arteries are pa tent. There is no intracranial aneurysm. IMPRESSION: Unremarkable MRA of the head. ACT 112: Negative or not required by law. Electronically signed by: Greg Doty M.D. 01/17/2020 10:11 AM
--- NOTE | 2020-01-17 10:29 | Magnetic Resonance Report ---
MRI OF THE BRAIN WITHOUT CONTRAST CLINICAL HISTORY: Right-sided weakness and memory loss. Evaluate for cerebrovascular accident. COMPARISON STUDY: Head CT January 17, 2020. TECHNIQUE: Utilizing a 1.5 Camila magnet and dedicated coil, multiplanar, multiecho imaging of the bra in was performed without IV contrast. FINDINGS: There are no foci of restricted diffusion to suggest acute infarct. No acute intracranial h emorrhage, midline shift or mass effect is present. There is moderate dilatation of the atria and pos terior horns of the lateral ventricles. Temporal horns are normal in size. Basilar cisterns are paten t. There are no extra axial collections. Moderate white matter T2 hyperintense foci suggest small ves jone disease. No intracranial masses identified on this unenhanced exam. Calvarial signal is maintaine d. Sinuses and orbits are unremarkable. There is no mastoid fluid. IMPRESSION: 1. No acute intracranial findings. 2. Moderate atrophy which likely accounts for dilatation of the atria and posterior horns of the late ral ventricles. 3. White matter T2 hyperintense foci suggestive of moderate small vessel disease. ACT 112: Negative or not required by law. Electronically signed by: Greg Doty M.D. 01/17/2020 10:27 AM
--- NOTE | 2020-01-17 11:19 | Cardiology Consultation ---
Date of Consultation his is a 64-year-old male patient brought to the emergency department by EMS with an altered mental status. The patient awoke from sleep to go to the [facility] and the heard him stumbling around in the bathroom. After he came out of the bathroom, she noted that he had urinated all about the floor. She then heard him in the bedroom making snoring breath sounds. She went to the bedroom and found him in a semi-responsive state with blood around his mouth. Upon EMS arrival, the patient was awake but confused and combative. They found his pupils to be pinpoint. They were able to establish an IV and administer 2 doses of Narcan with no change to his mental status. He received 2 mg of IV Ativan which did seem to help the patient's situation. His blood sugar was 116. CT scan of the brain was unremarkable. By exam today he denies any chest pain chest pressure chest heaviness as an outpatient. He is able to exercise on a regular basis noting that he does 40 minutes of aerobic activity 3 to 4 days a week. He can walk to the mailbox without any issues. And climb flight of stairs without any chest tightness or chest pressure. Has any palpitations fluttering or skips or feeling his heart racing as well as dizziness presyncope syncope he denies any lower extremity edema. Overall he describes his function capacity is stable in the last 6 months. He did use a THC supplement last night to help with his neck pain for the first time. His speech today to me seems slightly off whether that is because he bit his tongue or not is unclear. He denies any chest tightness this morning. And feels nearly back to himself. He notes he does snore very loudly. He does have some daytime somnolence. He notes his sleeps in another room because he snores so loudly. The rest of a complete review of systems otherwise negative January 17, 2020 History of Present Illness Attending Physician: Jermey Harry DO Allergies Allergy/AdvReac Type Severity Reaction Status Date / Time No Known Allergies Allergy Unverified 01/17/20 03:28 Home Medications Home Medications Medication Instructions Recorded Confirmed Type omega-3 fatty acids 1,000 mg 2,000 mg PO DAILY cap 03/10/19 01/17/20 History capsule simvastatin 40 mg tablet 40 mg PO HS #90 tab 04/22/19 01/17/20 Rx colchicine 0.6 mg tablet See Rx Instructions PO DAILY PRN 05/30/19 01/17/20 History tab cyclobenzaprine 10 mg tablet 10 mg PO HS PRN 05/30/19 01/17/20 History Hempvanna Cream 1 applic TOPICAL UD PRN 01/17/20 History Patient History Medical History CKD (chronic kidney disease) stage 3, GFR 30-59 ml/min Gout Social History Preferred Language: Indonesian Communication Ability: Effective Metal Room Dental Technician Required: No Beliefs That Will Affect Care: None Current Living Situation: Spouse Feels Safe at Home: Yes Smoking Status: Former smoker Second Hand Exposure: No ; Hx Alcohol Use: No Hx Substance Use: No Results & Data ([facility]) Vital Signs (Past 12 Hours) Vital Signs Temp Pulse Pulse Resp BP BP Pulse Ox 01/17/20 08:00 01/17/20 07:32 01/17/20 07:18 36.8 C 75 20 163/95 H 98 01/17/20 06:45 84 18 154/100 H 95 01/17/20 05:47 80 162/104 H 98 01/17/20 04:48 81 153/101 H 96 01/17/20 04:04 83 21 122/80 95 01/17/20 03:12 36.6 C 97 H 23 128/73 90 Pulse Ox 01/17/20 08:00 95 01/17/20 07:32 95 01/17/20 07:18 01/17/20 06:45 01/17/20 05:47 01/17/20 04:48 01/17/20 04:04 01/17/20 03:12 He is awake alert and oriented x3 this morning. He is moving all extremities appropriate. HEENT: 2+ carotid upstrokes normal to carotid bruits jugular is pressure cannot be assessed sclerae anicteric his hearing is normal he has a large neck with a short neck stature Lungs: Clear to auscultation bilaterally no rales rhonchi or wheezing Heart regular rate and rhythm no appreciable murmurs rubs or gallops Abdomen soft and tenderness and a positive bowel sounds Extremities no clubbing cyanosis or edema Psychiatric his affect appeared appropriate EKG: Normal sinus rhythm normal ECG His inpatient laboratory studies as well as his diagnostic imaging studies were reviewed. Impressions: 1. Change in mental status with a negative work-up including MRI MRA and severino tid ultrasound 2. Minimal troponin elevation possibly secondary to seizure activity due to #1 3. Likely obstructive sleep apnea 4. Chronic kidney disease 5. Normal ECG I would trend his troponins just to make sure they are not rising substantially. He denies any current anginal symptoms. A limited bedside echo was started while I was still in the room. His LV function appears preserved and there were no obvious wall motion abnormalities in the 5 or 6 images I saw. His right heart is severely dilated. We will rule out left to right shunts on his echocardiogram. More likely this is related to untreated obstructive sleep apnea. He denies any recent long car rides or airplane rides to suggest that his right heart may be dilated along with his troponin elevation from a pulmonary embolism. But if there is a high clinical suspicion he may need CT angiography of his chest. If his troponins remain minimally elevated I would treat him medically at this point he denied any outpatient anginal symptoms. There is nothing on the monitor to suggest AV block at this point he is in sinus rhythm with PACs unless there are concerning arrhythmias noted on the monitor at this point I would not recommend a 4-week event recorder upon discharge. We will continue to follow him with you
--- NOTE | 2020-01-17 13:54 | Electroencephalogram ---
EEG Procedure Note Date of Service January 17, 2020 Start / End Times Start Time: 12:35 PM End Time: 12:55 PM Referring Physician Mitesh Alfredo MD History Seizure-like episode Home Medication List Home Medications Medication Instructions Recorded Confirmed Type omega-3 fatty acids 1,000 mg 2,000 mg PO DAILY cap 03/10/19 01/17/20 History capsule simvastatin 40 mg tablet 40 mg PO HS #90 tab 04/22/19 01/17/20 Rx colchicine 0.6 mg tablet See Rx Instructions PO DAILY PRN 05/30/19 01/17/20 History tab cyclobenzaprine 10 mg tablet 10 mg PO HS PRN 05/30/19 01/17/20 History Hempvanna Cream 1 applic TOPICAL UD PRN 01/17/20 History Inpatient Medication List Sodium Chloride (Nss 1000ml) 1,000 mls @ 80 mls/hr IV .[id number] [facility] Stop: 02/16/20 07:31 Last Admin: 01/17/20 08:13 Dose: 80 mls/hr Documented by: [id number] Discontinued Medications Sodium Chloride (Nss) 500 mls @ 125 mls/hr IV .Q4H [facility] Stop: 02/16/20 05:14 Last Infusion: 01/17/20 08:13 Dose: 0 mls/hr Documented by: [id number] Admin: 01/17/20 05:10 Dose: 125 mls/hr Documented by: [id number] Description This is a 21 electrode EEG with a single channel dedicated to limited EKG. The electrodes were placed in accordance with the International 10-20 system. There is a well-developed posterior dominant rhythm of 9 Hz which is symmetrically distributed and attenuates with eye opening. There is a normal anterior to posterior organization. Photic stimulation is unremarkable. Hyperventilation is not performed. There is a symmetrical frontal beta rhythm. There is no focal or lateralized slowing. No epileptiform abnormalities observed. Sleep was not achieved. Interpretation This is a normal-appearing awake/drowsy EEG revealing a normal background alpha rhythm. There are no epileptiform abnormalities. There are no EEG changes suggestive of encephalopathy. Please see today's neurology consultation for further clinical correlation. [facility] EEG Procedure Codes Indication for Procedure (1) Seizure-like activity: Neurology Neurology: 12828 EEG include record awake & drowsy
--- NOTE | 2020-01-17 16:07 | Communication Note ---
Date of Service: January 17, 2020 Update since HPI: S: David Shipman was doing well this morning, he again reviewed what had happen to him overnight. He explained that he had pain in his tongue and right shoulder but otherwise was doing well. Objective: Patient was alert and oriented, in no apparent distress, euthymic mood, breathing comfortably, appearing well perfused with skin intact and warm A/P: 64 yo previously healthy man presents after confusion and tongue bitting event that is concerning for seizure vs. transient global amnesia and TIA also on the differential. Confusion CT head - unremarkable MRA carotid duplex w/ mild plaque w/o stenosis - neurology consulted and no indication for antiepileptics at this point - EEG ordered - cardiology consulted - ECHO ordered - passed dysphagia screen, ordered a heart healthy diet Elevated Troponin, potentially due to increased demand if event represents seizure - .073 then .326 @ 7:57, continue to trend until downtrending ALEXA - Cr. 1.82, above baseline - NSS 80 ml/hr - check Am BMP DVT: Code: full Diet: heart healthy I personally examined the patient and verified all thompson points of history and exam, discussed case, and agree with decision making with Dr Galan feeling ok now. does snore significantly vitals noted nad heent nc at mmm breathing unlabored no accessory muscles AMS - biggest concern would be seizure - could fit most of clinical presentation (preceding sx somewhat odd but ?seizure started focal frontal) and would explain physiologic stress leading to ALEXA and troponin elevation -- TGA would explain preceding sx well but far less the tongue biting/labs/etc. appreciate specialist assistance Resident Activity Tracking Resident Involvement: Resident Care Provided Care Provided: Adult Hospital Medicine
[2020-01-17] MEDS ORDERED: ACETAMINOPHEN 325 MG TAB PO PRN (18:13)
[2020-01-17] MEDS ORDERED: ACETAMINOPHEN 325 MG TAB ONE (18:18)
[2020-01-17] MEDS: SIMVASTATIN 40 MG TAB PO SCH (20:09)
[2020-01-17] MEDS ORDERED: ALUMINUM/MAGNESIUM SUSP 30 ML UDC PO PRN (20:48)
[2020-01-17] MEDS ORDERED: POLYETHYLENE (MIRALAX) 17 GM PACK PO PRN (20:48)
[2020-01-17] MEDS ORDERED: MAGNESIUM HYDROXIDE SUSP 30 ML UDC PO PRN (20:48)
[2020-01-17] MEDS ORDERED: ONDANSETRON INJ 2 MG/ML 2 ML VIAL IV PRN (20:48)
[2020-01-17] MEDS: HEPARIN SOD 5,000 UNIT/0.5 ML VIAL SQ SCH (21:58)
[2020-01-18 06:16] LABS: Basophils # (auto) 0.02 K/uL (0-0.2); Basophils % (auto) 0.2 %; Eosinophils # (auto) 0.34 K/uL (0-0.5); Eosinophils % (auto) 3.4 %; Hematocrit (blood only) 43.6 % (42-52); Hemoglobin 14.5 g/dL (14.0-18.0); Immature Granulocytes # (auto) 0.03 K/uL (0.00-0.02); Immature Granulocytes % (auto) 0.3 %; Lymphocytes # (auto) 1.05 K/uL (1.2-3.4); Lymphocytes % (auto) 10.4 %; Mean Corpuscular Hemoglobin 30.9 pg (25-34); Mean Corpuscular Hgb Conc 33.3 g/dL (32-36); Mean Platelet Volume 10.1 fL (7.4-10.4); Monocytes # (auto) 0.76 K/uL (0.11-0.59); Monocytes % (auto) 7.5 %; Neutrophils # (auto) 7.87 K/uL (1.4-6.5); Neutrophils % (auto) 78.2 %; Platelet Count 164 K/uL (130-400); RDW Coefficient of Variation 13.5 % (11.5-14.5); RDW Standard Deviation 45.5 fL (36.4-46.3); Red Blood Count 4.69 M/uL (4.7-6.1); White Blood Count 10.07 K/uL (4.8-10.8)
[2020-01-18 06:30] LABS: Partial Thromboplastin Time 28.4 Seconds (21.0-31.0); Prothrombin Time 10.9 Seconds (9.0-12.0)
[2020-01-18 06:54] LABS: BUN Creatinine Ratio 17.8 (10-20); Creatinine Clr Calc Pharmacy 62.8 ml/min; Est GFR (African American) 50.9; Est GFR (Non-African American) 43.9; Magnesium 1.9 mg/dl (1.8-2.4); Potassium 4.8 mmol/L (3.5-5.1)
[2020-01-18] MEDS: HEPARIN SOD 5,000 UNIT/0.5 ML VIAL SQ SCH ×2 (07:33→20:40)
[2020-01-18] MEDS: ASPIRIN 81 MG ECTAB PO SCH (07:33)
[2020-01-18] MEDS: SODIUM CHLORIDE 0.9% 1000ML 1,000 ML IV SCH (08:44)
--- NOTE | 2020-01-18 10:40 | Hospitalist Progress Note ---
Date of Service January 18, 2020 Assessment & Plan Admission and Anticipated Discharge Date Admission Date: January 17, 2020 64 yo previously healthy active man presents after confusion and tongue bitting event that is concerning for seizure vs. transient global amnesia and TIA also on the differential. Also found to have elevated troponin that continues to rise w/o chest pain or pressure. Confusion, w/ tongue bitting concerning for seizure - CT head negative - unremarkable MRA - carotid duplex w/ mild plaque w/o stenosis - neurology consulted and no indication for antiepileptics at this point - EEG did not show epileptic activity - cardiology consulted and plan for cath tomorrow - ECHO, w/ EF 60-65% and nl. wall motion - passed dysphagia screen, ordered a heart healthy diet Elevated Troponin, potentially due to increased demand if event represents seizure, although this elevation does exceed out expectation and has continued to rise - 0.073 -> 0.326 -> 0.266 -> 0.56 -> 1.1 -> 0.8 - cardiology consulted, plan for cardiac cath tomorrow; risk of worsening kidney function, plan to increase fluid prior to procedure - started Toprol xl 25 mg, also considered ERMA-i but given his elevated Cr. will defer for now ALEXA, in the setting of CKD - cr. improving currently 1.26 - LR 125 ml/hr pHTN, w/ concern for sleep apnea, less likely PE given normal heart rate, normal EKG, no hypoxia and no chest pain - ECHO: EF 60-65%, right ventricle is dilated and pulmonary pressure is 40 mmHg. - patient would likely benefit from an outpatient sleep study, Jessie Stevens was contacted Right arm pain, potentially from the event leading to admission vs. recent history of working out - examination concerning for tendinopathy - Acetaminophen PRN, and Voltaren cream QID DVT: Heparin Code: full Diet: heart healthy Supervising Physician Co-Signing Physician Notes I personally examined the patient and verified all thompson points of history and exam, discussed case, and agree with decision making with Dr Galan. d/w dr jain as well - input appreciated. pt's main complaint to me is R shoulder pain - top of shoulder, thinks he hurt it more when lifting weights during quarantine. however, this is drastically different than the HPI he gives to dr jain as it relates to shoulder pain vitals noted nad heent nc at mmm breathing unlabored no accessory muscles good effort skin no rashes no pallor or icterus neuro no focal deficits msk R shoulder nontender to palp except at bicepital groove /proximal anterior humerous, good strength at flexion elbow and shoulder. mildly positive "beer can test" of R arm (ie when arm laterally extended, interally rotated with thumb down he has some discomfort, but not blowout weakness, with attempt at further abduction of arm). normal gait. somewhat odd affect and difficult to keep on topic. AMS - seems most likely to have had a seizure type episode, but only once - agree w neuro right now no clear role for chronic anticonvulsants for a possible one-time episode. ongoing vigilance elevated troponin - male, age, probable HTN as clear risks, CKD of uncertain etiology, probable untreated JESSICA, obesity with BMI of 32.4 as "softer risks" - but initially trop peak of 0.326 in the context of presumed physiologic stress from seizure and reassuring LV on echo fit with demand ischemia, now trop peaking higher and seemingly randomly much more concerning. best approach at this point appears to be to define coronary anatomy; in light of CKD discussed with cardiology the possible utility of stress testing but with pre-hydration and given the concern of how severe CAD he might harbor, we both agree LHC appears to be the best way to proceed. shoulder pain - seems possible that he has several processes at play, given the shifting HPI. for me, he does appear to have findings c/w supraspinatus tendonitis and possibly a little proximal biceps tendonitis -- voltaren gel. given the concern on a more exertional (but not using the arm exertional) picture dr jain got - even more concern for looking at coronary anatomy. probable pulm HTN and R sided CHF seen on echo - likely related to untreated JESSICA. for sleep study. DVT proph - heparin SQ otherwise as above Subjective Doing good this morning. I asked if he was having any chest pain or pressure this morning, he denied any. He was feeling groggy and explained that he normally gets up at 3 - 4 AM, but he has been sleeping later in the hospital. He explained that he does snore a lot and his previously would sleep in another room due to this and he wakes himself up from snoring. He is willing to get a workup for sleep apnea. His brother has a history of sleep apnea. Tele: sinus in the 60-70's Review of Systems Review of Systems: constitutional: denies fevers or chills cardiac: denies chest pain or palpitations overnight GI: denies nausea or vomiting Pulm: admits cough (relates to cough), denies shortness of breath : denies urinary symptoms Physical Exam Constitutional: WD/WN, vitals as above ENMT: external ear and nose normal, oropharynx normal Neck: normal visual inspection Respiratory: normal respiratory effort, lungs clear to auscultation Cardiovascular: RRR, no murmur, no edema Gastrointestinal (Abdomen): normal bowel sounds, soft, nontender, no hepato splenomegaly Psychiatric: Orientation: alert Results & Data Results & Data ([facility]) Vital Signs (Past 12 Hours) Vital Signs Temp Pulse Pulse Resp BP BP Pulse Ox 01/18/20 08:00 78 01/18/20 07:52 36.5 C 77 18 149/92 H 97 01/18/20 04:03 36.7 C 78 20 155/89 H 96 01/17/20 23:56 71 01/17/20 23:32 36.4 C L 74 18 164/95 H 97 Resident Activity Tracking Resident Involvement: Resident Care Provided Care Provided: Adult Hospital Medicine
[2020-01-18] MEDS: DICLOFENAC SOD 1% GEL 100 GM TUBE EXT SCH ×3 (12:16→20:39)
[2020-01-18] MEDS: LACTATED RINGER'S 1,000 ML IV SCH ×2 (13:50→20:40)
--- NOTE | 2020-01-18 14:11 | Cardiology Progress Note ---
Date of Service January 18, 2020 Subjective The patient is a very poor historian. In fact he has flight of ideas with regards to his history. He describes right shoulder discomfort. He initially describes it as chronic and then at times will describe it is worse with activity not necessarily using his arm but with actually doing activity. He also describes having worsening shoulder discomfort in the winter when the weather was cold. He denies any chest tightness or chest pressure. He denies any lightheadedness or dizziness. He denies any palpitations. His troponin continues to rise even in light of a normal EKG and normal LV function without wall motion abnormalities. He notes his shoulder discomfort here in the hospital is worse than it was compared to before the hospital. He is unsure whether he may have been pulled or pushed by EMS during the visit at his house. The rest of a complete review of systems is negative Results & Data Vital Signs (Past 12 Hours) Vital Signs Temp Pulse Pulse Resp BP Pulse Ox 01/18/20 12:34 37.3 C 84 18 162/99 H 96 01/18/20 08:00 78 01/18/20 07:52 36.5 C 77 18 149/92 H 97 01/18/20 04:03 36.7 C 78 20 155/89 H 96 He is awake alert and oriented x3 this morning. He is moving all extremities appropriate. HEENT: 2+ carotid upstrokes normal to carotid bruits jugular is pressure cannot be assessed sclerae anicteric his hearing is normal he has a large neck with a short neck stature Lungs: Clear to auscultation bilaterally no rales rhonchi or wheezing Heart regular rate and rhythm no appreciable murmurs rubs or gallops Abdomen soft and tenderness and a positive bowel sounds Extremities no clubbing cyanosis or edema Psychiatric his affect appeared appropriate Neurologic: He is awake alert and oriented x3 EKG: Normal sinus rhythm normal ECG His inpatient laboratory studies as well as his diagnostic imaging studies were reviewed. Impressions: 1. Change in mental status with a negative work-up including MRI MRA and carotid ultrasound 2. Non-ST elevation myocardial infarction with a peak troponin of 1.1 3. Likely obstructive sleep apnea with a dilated right ventricle 4. Chronic kidney disease with a creatinine of 1.5 5. Normal ECG 6. Likely untreated hypertension leading to chronic kidney disease 7. Normal LV size and function In discussion with Dr. ALEJO of the hospitalist service we are both concerned that he has multiple risk factors for CAD. He has this worsening right shoulder discomfort associated with a rising troponin. Although his troponin could be related to demand ischemia and his CKD we cannot rule out obstructive coronary artery disease. He is a very poor historian making an assessment of anginal symptoms difficult. He notes in the past he walked on the treadmill for a stress test and had a difficult time with this. In light of that we both recommended cardiac catheterization to define his coronary anatomy. I discussed the risks and benefits of cardiac catheterization risks include but are not limited to bleeding, infection or damage to the puncture site. One in the thousand risk of heart attack, stroke or dying with the procedure. Risk of contrast-induced nephropathy and allergic reaction to contrast were discussed with the patient. The patient understands the risks and wishes to proceed. He will be n.p.o. after midnight. He will receive IV fluids given his renal dysfunction. Further recommendations will be forthcoming. Once he has completed the catheterization in addition to his beta-blockers I would try to add low-dose angiotensin receptor micheal given his chronic kidney disease with close monitoring of his creatinine and potassium as an outpatient.
--- NOTE | 2020-01-18 17:12 | Billing Data ---
Date of Service January 18, 2020 Coding Level of Care Code 92027 Subseq Hosp Care Lvl 3
[2020-01-18] MEDS: SIMVASTATIN 40 MG TAB PO SCH (20:39)
[2020-01-19] MEDS: LACTATED RINGER'S 1,000 ML IV SCH ×2 (04:13→17:48)
[2020-01-19 06:35] LABS: Basophils # (auto) 0.04 K/uL (0-0.2); Basophils % (auto) 0.5 %; Eosinophils # (auto) 0.57 K/uL (0-0.5); Eosinophils % (auto) 7.1 %; Hematocrit (blood only) 40.3 % (42-52); Hemoglobin 13.5 g/dL (14.0-18.0); Immature Granulocytes # (auto) 0.02 K/uL (0.00-0.02); Immature Granulocytes % (auto) 0.3 %; Lymphocytes # (auto) 1.43 K/uL (1.2-3.4); Lymphocytes % (auto) 17.9 %; Mean Corpuscular Hgb Conc 33.5 g/dL (32-36); Mean Corpuscular Volume 92.6 fL (80-100); Mean Platelet Volume 10.3 fL (7.4-10.4); Monocytes # (auto) 0.86 K/uL (0.11-0.59); Monocytes % (auto) 10.8 %; Neutrophils # (auto) 5.08 K/uL (1.4-6.5); Neutrophils % (auto) 63.4 %; Platelet Count 151 K/uL (130-400); RDW Standard Deviation 44.1 fL (36.4-46.3); Red Blood Count 4.35 M/uL (4.7-6.1)
[2020-01-19 06:46] LABS: INR 1.1 (0.9-1.1); Partial Thromboplastin Ratio 1.1; Partial Thromboplastin Time 30.8 Seconds (21.0-31.0); Prothrombin Time 11.1 Seconds (9.0-12.0)
[2020-01-19 07:18] LABS: BUN Creatinine Ratio 20.8 (10-20); Calcium 8.9 mg/dl (8.5-10.1); Creatinine Clr Calc Pharmacy 83.4 ml/min; Est GFR (African American) 71.7; Est GFR (Non-African American) 61.8; Magnesium 1.7 mg/dl (1.8-2.4); Potassium 3.9 mmol/L (3.5-5.1)
[2020-01-19] MEDS: METOPROLOL SUCC 25MG EXT REL TAB PO SCH (08:22)
[2020-01-19] MEDS: HEPARIN SOD 5,000 UNIT/0.5 ML VIAL SQ SCH ×2 (08:23→21:24)
[2020-01-19] MEDS: ASPIRIN 81 MG ECTAB PO SCH (08:23)
[2020-01-19] MEDS: DICLOFENAC SOD 1% GEL 100 GM TUBE EXT SCH ×4 (08:23→21:25)
[2020-01-19] MEDS ORDERED: MAGNESIUM SULFATE / D5W 1 GM/100 ML BAG IV ONE (10:00)
--- NOTE | 2020-01-19 12:28 | Electrocardiogram Report ---
Test Reason : Blood Pressure : / mmHG Vent. Rate : 077 BPM Atrial Rate : 077 BPM P-R Int : 150 ms QRS Dur : 094 ms QT Int : 378 ms P-R-T Axes : 030 015 030 degrees QTc Int : 427 ms Normal sinus rhythm Normal ECG When compared with ECG of 17-JAN-2020 03:20, No significant change was found Confirmed by Boni Chris ([id number]) on 01/19/2020 12:28:13 PM Referred By: REFERRED SELF Confirmed By:Delfino Chris
[2020-01-19] MEDS ORDERED: fentaNYL citrate 100 MCG/2 ML VIAL ONE (14:51)
[2020-01-19] MEDS ORDERED: MIDAZOLAM HCL 1 MG/ML 2ML VIAL ONE (14:51)
[2020-01-19] MEDS ORDERED: NiCARDipine HCL INJ 2.5 MG/ML 10 ML AMP ONE (14:51)
[2020-01-19] MEDS ORDERED: HEPARIN (PORCINE) 1000 UNIT/ML 10 ML (CATH LAB USE ONLY) ONE (14:51)
[2020-01-19] MEDS ORDERED: NITROGLYCERIN/D5W 100MCG/ML 20ML SYR ONE (14:54)
--- NOTE | 2020-01-19 15:43 | Pre Anesthesia Assessment ---
Date of Service January 19, 2020 Pre Sedation Assessment Vital Signs Temp Pulse Pulse Resp BP BP Pulse Ox 01/19/20 11:31 98.2 F 67 18 151/98 H 98 01/19/20 07:47 97.7 F 71 17 170/79 H 98 01/19/20 03:10 97.5 F L 69 18 167/91 H 99 01/19/20 00:00 96 H 01/18/20 23:11 97.9 F 72 18 158/98 H 98 01/18/20 19:57 99.0 F 73 18 140/88 95 01/18/20 15:43 98.4 F 77 18 172/86 H 99 Cardiovascular RRR, no murmur, no edema Respiratory normal respiratory effort, lungs clear to auscultation Pre-Sedation Airway Assessment Smoking Status: Former smoker Hx Sleep Apnea: No Hx Difficult Intubation: No Short, Thick Neck: No Thyromental Distance: > or= 3.5 Finger Breadths Oral Cavity: + WNL Mallampati Class: IV ASA: ASA3 NPO Status Date of Last Intake of Fluids: 01/19/20 Time of Last Intake of Fluids: 08:00 Last Oral Intake of Fluids Comment: sip with meds Date of Last Intake of Solid Food: 01/18/20 Time of Last Intake of Solid Foods: 18:30 Procedure Planning Contraindications for Sedation: none Current Medications Reviewed: Yes Notes The planned sedation has been discussed with the patient. Informed Consent was obtained. I have identified the patient, determined the appropriateness of sedation and have assessed the patient immediately prior to the procedure. All medicine(s) and interventions are by my order.
--- NOTE | 2020-01-19 15:44 | Cardiology Consultation ---
Date of Consultation January 19, 2020 Assessment & Plan (1) Elevated troponin: Patient with peaked troponin in the setting of cardiac risk factors and atypical right shoulder/chest symptoms. Suspicion for ACS is elevated. Agree with proceeding with cardiac catheterization for further risk str atification. Discussed procedure including risks, benefits, alternatives with patient and he is willing to proceed. History of Present Illness Attending Physician: Sylvia Spencer DO History of Present Illness Mr. Shipman is a 64-year-old man with a history of obesity, dyslipidemia, stage III chronic kidney disease who was admitted with an episode of confusion and questionable seizure-like activity. Neuroimaging unremarkable. Noted to have an elevated troponin which peaked at 1.1 in the setting of atypical right shoulder pain. ECG unremarkable, echocardiogram showed no regional wall motion abnormalities. Allergies Allergy/AdvReac Type Severity Reaction Status Date / Time No Known Allergies Allergy Unverified 01/17/20 03:28 Home Medications Home Medications Medication Instructions Recorded Confirmed Type omega-3 fatty acids 1,000 mg 2,000 mg PO DAILY cap 03/10/19 01/17/20 History capsule simvastatin 40 mg tablet 40 mg PO HS #90 tab 04/22/19 01/17/20 Rx colchicine 0.6 mg tablet See Rx Instructions PO DAILY PRN 05/30/19 01/17/20 History tab cyclobenzaprine 10 mg tablet 10 mg PO HS PRN 05/30/19 01/17/20 History Hempvanna Cream 1 applic TOPICAL UD PRN 01/17/20 History Patient History Medical History CKD (chronic kidney disease) stage 3, GFR 30-59 ml/min Gout Social History Preferred Language: Hong Konger Communication Ability: Effective [employer] Required: No Beliefs That Will Affect Care: None marital status: Current Living Situation: Spouse Feels Safe at Home: Yes Smoking Status: Former smoker Second Hand Exposure: No ; Hx Alcohol Use: No Hx Substance Use: No Review of Systems Review of Systems: All systems reviewed & are unremarkable except as noted in HPI & below Physical Exam Physical Exam: General: Comfortable, no acute distress HEENT: Sclerae anicteric, mucous membranes moist Lungs: Clear to auscultation bilaterally, no rhonchi or wheezes Cardiac: Regular rate and rhythm, no murmurs. No JVD. Abdomen: Soft, nontender, nondistended, positive bowel sounds. Extremities: Warm, well perfused, no edema. 2+ radial pulses Skin: Ecchymosis over right biceps Neuro: Nonfocal Psych: Alert orient x3, normal affect and mood Results & Data ([facility]) Vital Signs (Past 12 Hours) Vital Signs Temp Pulse Resp BP BP Pulse Ox 01/19/20 11:31 98.2 F 67 18 151/98 H 98 01/19/20 07:47 97.7 F 71 17 170/79 H 98 PG Care Time/CCT Total # of Minutes Spent Total Time Spent with Patient: Total time spent is greater than 50% in coordination of care (as documented) at patient's floor/unit and/or counseling patient: Coding Level of Care Code 47695 Inpt Consult Level 3 Diagnoses Elevated troponin R79.89
[2020-01-19] MEDS ORDERED: CLOPIDOGREL BISULFATE 300 MG TAB ONE (16:17)
--- NOTE | 2020-01-19 16:22 | Post Anesthesia Assessment ---
Date of Service January 19, 2020 Post Sedation Assessment Vital Signs Temp Pulse Pulse Resp BP BP Pulse Ox 01/19/20 11:31 98.2 F 67 18 151/98 H 98 01/19/20 07:47 97.7 F 71 17 170/79 H 98 01/19/20 03:10 97.5 F L 69 18 167/91 H 99 01/19/20 00:00 96 H 01/18/20 23:11 97.9 F 72 18 158/98 H 98 01/18/20 19:57 99.0 F 73 18 140/88 95 Recovery Score Activity: Moves 4 extremities Respiration: Deep Breath/Cough Circulation: +/-20% PreAnes Value Consciousness: Fully Awake Oxygen Saturation: O2 needed for >90% Discharge Sedation Level of Care: Fast Track Phase II Post Sedation Plan On clinical assessment, the patient appears to have tolerated the sedation without complications. Patient is recovering as anticipated. Patient will continue to be monitored by nursing and may be discharged when sedation discharge criteria are met per below protocol. Upon Completions of procedure up to 15 minutes continue every 5 minute vital signs and the P.A.R. score; then discharge to a Phase I or Fast Track to Phase II per the following guidelines: * Discharge Patient to appropriate Phase II area if PAR is 8 or greater or return to pre- procedure baseline. The post - procedure orders will be as directed. * If PAR score is less than 8 or not return to pre-procedure baseline then patient will follow Phase I monitoring till PAR is reached for Phase II. The Phase I may be done in procedure room or may call to secure a Phase I area. * If naloxone or flumazenil are used for reversal, hold in Phase I for continued monitoring from when last reversal dose was given for a minimum of 60 minutes or longer pending the nurse and/or physician discretion of patient condition before discharge to Phase II. Please call the Sedation Physician to re-evaluate and complete post-note for discharge to Phase II area. Do NOT discharge from procedure sedation or Phase 1 until post- sedation evaluation note is complete by procedure /sedation MD Sedation Discharge Instructions to be given to the patient at discharge to home.
--- NOTE | 2020-01-19 16:38 | Cardiac Catheterization ---
[facility] Data: Dietitian Consultant Cardiac Status Clinical evaluation leading to the procedure CAD Presenation: Non STEMI Anginal Classification: CCS IV Heart Failure: No Cardiogenic Shock within 24 Hours: No Cardiac Arrest within 24 Hours: No Imaging Studies Past 6 Months: Yes Stress Studies Past 6 Months: No Diagnostic Physicians Name: Boni Baxter MD Status: Elective Closure Device Percutaneous Entry Location: Radial Recommendations: PCI without planned CABG PCI Indication: PCI for high risk Non-GALA Lesion Segment Name: mid RCA Culprit Artery: Yes Stenosis Prior to Rx (%): 70 Chronic Total Occlusion: No IVUS: No FFR: No Pre-Procedure ZARIA Flow: 3 Previously Treated Lesion: No Lesion Complexity: Non-High/Non-C Lesion Length (mm): 12 Thrombus Present: Yes Bifurcation Lesion: No Guidewire Across Lesion: Stenosis Post-Procedure (%): 0 Post-Procedure ZARIA Flow: 3 Devices(s) Deployed: Yes Yes Intraprocedure Events Significant Disection: No Perforation: No Cardiac Cath Procedure Full Procedure Date January 19, 2020 Pre-Procedure Diagnosis Pre-Procedure Diagnosis: Non STEMI AUC Score AUC Score: 8 Post-Procedure Diagnosis Post-Procedure Diagnosis: Severe CAD, Successful PCI and Normal Intracardiac Pressures Procedure(s) Performed Procedure(s) Performed: Coronary Angiography, Left Heart Cath and Drug Eluting Stent Non Licensed Operator Boni Baxter MD Life Skills Educator(s) Myron Estimated Blood Loss Estimated Blood Loss: 10 Medication(s) Medication(s): Clopidogrel, Fentanyl, Heparin, Lidocaine 1%, Nicardipine, Nitroglycerin and Versed Summary of Findings Indication: NSTEMI Access: 6 Fr slender right radial artery Catheters: [place], JR4 guide Findings: LM -large-caliber vessel, luminal irregularities LAD -large caliber vessel proximally, diffuse 30% disease in the proximal mid segment, distal luminal irregularities as wraps around apex with ZARIA II flow. Medium caliber first diagonal without significant disease. Ramuslarge bifurcating vessel with 30 to 40% proximal to mid disease. Circumflex -medium caliber, diffuse 30% proximal disease, sequential 50% mid/distal lesions prior to takeoff of OM 2. RCA -dominant, large caliber vessel, proximal luminal irregularities, 70% acute appearing mid RCA stenosis, 40 to 50% earlydistal stenosis, 50% focal stenosis in proximal right PDA. LVEDP -17 -- PCI -- Antithrombotic therapy: Heparin, clopidogrel Procedure: RCA cannulated with JR4 guide BMW wire passed across lesion into distal vessel Mid RCA lesion predilated with 3.0 compliant balloon Dilated lesion stented with 3.5 x 18 mm Kai drug-eluting stent Stent post-dilated with 3.75 noncompliant balloon IC vasodilators administered for spasm Post procedure ZARIA 3 flow, stent well expanded with minimal residual stenosis and no apparent cardiac complications. Arterial Closure: TR band Summary: 1. Severe single vessel coronary artery disease -70% acute appearing mid RCA stenosis 2. Mild to moderate non-culprit vessel disease 30% diffuse proximal to mid LAD (distal LAD with ZARIA II flow). 40% proximal ramus Moderate diffuse mid to distal circumflex up to 50% 3. Normal intracardiac filling pressure 4. Successful PCI of mid RCA with single drug-eluting stent (3.5 x 18 mm [place]; postdilated with 3.75 NC). Recommendations: To PCU for continued monitoring Loaded with clopidogrel 600 mg in Dietitian Consultant Continue dual-antiplatelet therapy for at least 1 year Continue statin, and ASCVD risk factor modification Consult cardiac Rehab Hemodynamics Rest Ao:: 131/87/29 Final Ao: 141/73/104 LV: 140/17 Recommendations Recommendations: PCI without planned CABG Specimens Specimens: None Radiation Exposure (mGy) 1791 Contrast (mls) 110 Fluids (cc crystalloids) Fluids (cc crystalloids): 63 Drains Drains: None Anesthesia Moderate Procedural Complication(s) None Disposition PCU I attest to the content of the Intraoperative Record and any orders documented therein. Any exceptions are noted below. [facility] Card Cath Procedure Codes Cardiac Catheterization Procedure 1: Cardiovascular Cath Procedures: 71470 Coronaries and LHC (+/-LV) Moderate Sedation Procedure 1: Sedation/Anesthesia: 18347 Mod Sedation by the same physician;Init15 Min Child Age 5 & Up Procedure 2: Sedation/Anesthesia: 91665 Mod Sedation by the same physician; Ea [id number] Minutes Stenting Procedure 1: Cardiovascular Stent Procedures: 45558 Perc transcatheter placement of intracoronary stent(s), with ang PG Care Time/CCT Total # of Minutes Spent Total Time Spent with Patient: Total time spent is greater than 50% in coordination of care (as documented) at patient's floor/unit and/or counseling patient:
[2020-01-19] MEDS: SODIUM CHLORIDE 0.9% 1000ML 1,000 ML IV SCH (17:03)
--- NOTE | 2020-01-19 17:05 | Hospitalist Progress Note ---
Date of Service January 19, 2020 Assessment & Plan (1) Elevated troponin: 64 yo with PMH obesity, dyslipidemia, stage III chronic kidney disease presents after confusion and tongue bitting event that was initially concerning for seizure. Also found to have elevated troponin that continues to rise w/o chest pain or pressure. Elevated Troponin/CAD - ECG unremarkable, echocardiogram showed no regional wall motion abnormalities -peaked at 1.1, potentially contributed by an episode of cerebral hypoperfusion due to a cardiac cause, demand ischemia and pt's CKD, in setting of atypical R shoulder pain so ACS suspicion as well -01/18 Cath: Severe single vessel coronary artery disease--70% acute appearing mid RCA stenosis. Single ROLAND placed -will cont DAPT with ASA 81/ Plavix 75mg for one year - cont medication management with atorvastatin 40mg, Toprol XL 25 mg, Lisinopril 5mg - cardiac Rehab on d/c Confusion, w/ tongue bitting concerning for seizure - CT head negative - unremarkable MRA/MRI - carotid duplex w/ mild plaque w/o stenosis - EEG did not show epileptic activity - ECHO, w/ EF 60-65% and nl. wall motion - neurology consulted and no indication for antiepileptics at this point-- Event possibly isolated nocturnal convulsion, incomplete arousal with transient sleep paralysis - passed dysphagia screen, ordered a heart healthy diet -medical management with atorvastatin 40mg, ASA 81 as above ALEXA, in the setting of CKD -improving with IVF -CKD likely from untreated HTN --started Lisinopril as above. Will check kidney fxn/BMP as outpt on d/c -cont NSS at 100 mls/hr pHTN, w/ concern for untreated sleep apnea - ECHO: EF 60-65%, right ventricle is dilated and pulmonary pressure is 40 mmHg. - patient would likely benefit from an outpatient sleep study, Jessie Stevens was contacted Right shoulder pain -multiple likely etiologies contributing-- increased exercise regimen during quarantine leading up to admission, ?atypical pain concerning for ACS - examination concerning for supraspinatus tendinopathy - Acetaminophen PRN, and Voltaren cream QID FEN/GI: NSS at 100. HH Diet DVT Prophylaxis: Heparin SQ Full Code Dispo: Telemetry Admission and Anticipated Discharge Date Admission Date: January 17, 2020 Supervising Physician Co-Signing Physician Notes Patient seen and examined with PGY-2 Dr. Eason. Agree with history, exam findings, assessment and plan of care as outlined by Dr. Eason. In brief, Mr. Shipman is a 64 year old male with no significant medical history admitted following an episode of confusion, tongue biting. Today, he continues to report right shoulder pain and difficulty moving the shoulder. Denies chest pain, dizziness, shortness of breath. VS, labs and nursing notes reviewed. Heart with normal rate and rhythm. No murmur, rub or gallop. No peripheral edema. Right shoulder with tenderness over the lateral shoulder and bicipital groove/proximal long head of the biceps. Only able to actively abduct about 20 degrees, forward flexion to 15-20 degrees. IR to belt line. Negative hook test at the elbow/distal biceps insertion. +empty can. Unable to perform Hopkins's. 5- strength with bicep testing. 5/5 strength with triceps testing. 5/5 strength with internal rotation and external rotation. Significant ecchymosis on the inner aspect of the right upper arm. Nontender, do not appreciate a well circumscribed hematoma. 1. Altered mental status. Possibly seizure type episode. Seen by neuro. No chronic anti-epileptic drugs required at this point. MRI/MRA on admission with moderate atrophy, moderate chronic small vessel disease. CVA/TIA work up otherwise unremarkable. 2. CAD. Cardiac cath today with 70% blockage in the mid RCA, s/p drug eluting stent. Mild to moderate disease: 30% diffuse proximal to mid LAD, 40% proximal ramus, moderate diffuse mid to distal circumflex up to 50%. Continue high intensity statin, DAPT x 1 year. Cardiac rehab consult. 3. right shoulder pain. acute rotator cuff tendinopathy likely with ?LHB tendinopathy. Low suspicion for biceps tear. Ok to continue voltaren gel. Can do PT as an outpatient. 4. Pulm HTN/elevated right heart pressures seen on Echo. Likely due to JESSICA. Can have sleep study done as an outpatient. Dispo: likely dc home tomorrow AM. Subjective 64 yo M found in bed this AM. No acute overnight events. States wants to go home. Denies CP, SOB. Ongoing R shoulder discomfort. Awaiting cath. Pt seen after cath, doing well without complaints. Discussed staying in hospital additional night. Pt agreeable. Pt with no other acute concerns or complaints. Review of Systems Review of Systems: All systems reviewed & are unremarkable except as noted in HPI & below Physical Exam Constitutional: WD/WN, vitals as above no acute distress Eyes: PERRL, conjunctivae normal, anicteric sclerae ENMT: Mouth: + oral mucosal abnormality and + tongue abnormality (R sided tongue laceration) Respiratory: normal respiratory effort, lungs clear to auscultation Cardiovascular: RRR, no murmur, no edema Gastrointestinal (Abdomen): normal bowel sounds, soft, nontender, no hepatosplenomegaly Musculoskeletal: TTP proximal anterior humerus No TTP along distal/proximal head biceps Pain elicited on empty cans test Limited ROM abduction, IR Overall good strength Skin: + ecchymosis (large area along medial aspect of R UE) Psychiatric: A+Ox3, euthymic affect Results & Data Results & Data ([facility]) Vital Signs (Past 12 Hours) Vital Signs Temp Pulse Resp BP BP Pulse Ox 01/19/20 16:38 67 18 132/94 96 01/19/20 16:25 67 18 156/88 H 96 01/19/20 11:31 36.8 C 67 18 151/98 H 98 01/19/20 07:47 36.5 C 71 17 170/79 H 98 Laboratory Results Laboratory Results - last 24 hr 01/19/20 01/19/20 01/19/20 05:52 05:52 05:52 WBC 8.00 RBC 4.35 L Hgb 13.5 L Hct 40.3 L MCV 92.6 MCH 31.0 MCHC 33.5 RDW Std Deviation 44.1 RDW Coeff of Marlene 13.0 Plt Count 151 MPV 10.3 Immature Gran % (Auto) 0.3 Neut % (Auto) 63.4 Lymph % (Auto) 17.9 [place] % (Auto) 10.8 Eos % (Auto) 7.1 Baso % (Auto) 0.5 Immature Gran # (Auto) 0.02 Neut # (Auto) 5.08 Lymph # (Auto) 1.43 [place] # (Auto) 0.86 H Eos # (Auto) 0.57 H Baso # (Auto) 0.04 PT 11.1 INR 1.1 APTT 30.8 PTT Ratio 1.1 Activ Coag Time Kaolin Sodium 138 Potassium 3.9 D Chloride 107 Carbon Dioxide 25 Anion Gap 7.0 BUN 25 H Creatinine 1.22 D Est Cr Clr Drug Dosing 83.4 Est GFR ( Amer) 71.7 Est GFR (Non-Af Amer) 61.8 BUN/Creatinine Ratio 20.8 H Glucose 84 Calcium 8.9 Magnesium 1.7 L 01/19/20 16:15 WBC RBC Hgb Hct MCV MCH MCHC RDW Std Deviation RDW Coeff of Marlene Plt Count MPV Immature Gran % (Auto) Neut % (Auto) Lymph % (Auto) [place] % (Auto) Eos % (Auto) Baso % (Auto) Immature Gran # (Auto) Neut # (Auto) Lymph # (Auto) [place] # (Auto) Eos # (Auto) Baso # (Auto) PT INR APTT PTT Ratio Activ Coag Time Kaolin 268 H Sodium Potassium Chloride Carbon Dioxide Anion Gap BUN Creatinine Est Cr Clr Drug Dosing Est GFR ( Amer) Est GFR (Non-Af Amer) BUN/Creatinine Ratio Glucose Calcium Magnesium Medications Administered Current Inpatient Medications Acetaminophen (Tylenol) 650 mg PO Q4H PRN PRN Reason: Pain Stop: 02/16/20 18:12 Al Hydrox/Mg Hydrox/Simethicone (Maalox) 15 ml PO Q4H PRN PRN Reason: Dyspepsia Stop: 02/16/20 20:47 Aspirin (Ecotrin Ectab) 81 mg PO [facility] Stop: 02/17/20 08:59 Last Admin: 01/19/20 08:23 Dose: 81 mg Documented by: Clopidogrel [facility] ([facility]ix) [facility] [place] Stop: 02/19/20 08:59 Diclofenac Sodium (Voltaren 1% Top) 2 gm EXT QID [facility] Stop: 02/17/20 12:59 Last Admin: 01/19/20 12:22 Dose: Not Given Documented by: Heparin Sodium (Porcine) (Heparin Sodium (Porcine)) 5,000 units SQ Q12 [facility] Stop: 02/16/20 20:59 Last Admin: 01/19/20 08:23 Dose: 5,000 units Documented by: Sodium Chloride (Nss 1000ml) 1,000 mls @ 100 mls/hr IV .Q10H [facility] Stop: 02/18/20 16:44 Magnesium Hydroxide (Milk Of Magnesia) 30 ml PO Q12H PRN PRN Reason: Constipation Stop: 02/16/20 20:47 Metoprolol Succinate (Toprol Xl) [facility] [place] Stop: 02/18/20 08:59 Last Admin: 01/19/20 08:22 Dose: 25 mg Documented by: Miscellaneous Information (Pharmacist Discharge Med Rec Consult) 1 ea N/A UD PRN PRN Reason: Consult Stop: 02/16/20 07:31 Ondansetron HCl (Zofran) 4 mg IV Q6H PRN PRN Reason: Nausea Stop: 02/16/20 20:47 Polyethylene Glycol (Miralax Powder Packet) 17 gm PO DAILY PRN PRN Reason: Constipation Stop: 02/16/20 20:47 Simvastatin (Zocor) 40 mg PO HS RYAN Stop: 02/16/20 20:59 Last Admin: 01/18/20 20:39 Dose: 40 mg Documented by: Resident Activity Tracking Resident Involvement: Resident Care Provided Care Provided: Adult Hospital Medicine
[2020-01-19] MEDS ORDERED: ATORVASTATIN 40 MG TAB PO SCH (21:00)
[2020-01-20] MEDS: SODIUM CHLORIDE 0.9% 1000ML 1,000 ML IV SCH (02:21)
[2020-01-20 05:44] LABS: Basophils # (auto) 0.03 K/uL (0-0.2); Basophils % (auto) 0.5 %; Eosinophils # (auto) 0.52 K/uL (0-0.5); Hemoglobin 13.4 g/dL (14.0-18.0); Immature Granulocytes # (auto) 0.01 K/uL (0.00-0.02); Immature Granulocytes % (auto) 0.2 %; Lymphocytes # (auto) 1.07 K/uL (1.2-3.4); Lymphocytes % (auto) 16.6 %; Mean Corpuscular Hgb Conc 32.7 g/dL (32-36); Mean Corpuscular Volume 91.7 fL (80-100); Monocytes # (auto) 0.56 K/uL (0.11-0.59); Monocytes % (auto) 8.7 %; Neutrophils # (auto) 4.27 K/uL (1.4-6.5); Platelet Count 144 K/uL (130-400); RDW Coefficient of Variation 12.9 % (11.5-14.5); RDW Standard Deviation 43.5 fL (36.4-46.3); Red Blood Count 4.47 M/uL (4.7-6.1); White Blood Count 6.46 K/uL (4.8-10.8)
[2020-01-20 05:52] LABS: Prothrombin Time 10.9 Seconds (9.0-12.0)
[2020-01-20 06:18] LABS: BUN Creatinine Ratio 20.2 (10-20); Calcium 8.7 mg/dl (8.5-10.1); Est GFR (African American) 74.6; Est GFR (Non-African American) 64.4; Magnesium 1.7 mg/dl (1.8-2.4); Potassium 4.2 mmol/L (3.5-5.1)
[2020-01-20] MEDS ORDERED: MAGNESIUM SULFATE / D5W 1 GM/100 ML BAG IV ONE (07:15)
[2020-01-20] MEDS: ASPIRIN 81 MG ECTAB PO SCH (07:45)
[2020-01-20] MEDS: HEPARIN SOD 5,000 UNIT/0.5 ML VIAL SQ SCH (07:46)
[2020-01-20] MEDS: METOPROLOL SUCC 25MG EXT REL TAB PO SCH (07:46)
[2020-01-20] MEDS: DICLOFENAC SOD 1% GEL 100 GM TUBE EXT SCH (08:01)
[2020-01-20] MEDS ORDERED: CLOPIDOGREL BISULFATE 75 MG TAB PO SCH (09:00)
[2020-01-20] MEDS ORDERED: lisinopriL 5 MG TAB PO SCH (09:00)
--- NOTE | 2020-01-20 09:00 | Cardiology Progress Note ---
Date of Service January 20, 2020 Subjective No CP/SOB, no palps, feels well, affect better, Tooth Ache shoulder pain is better, no bleeding or bruising or wrist discomfort Results & Data Vital Signs (Past 12 Hours) Vital Signs Temp Pulse Pulse Resp BP Pulse Ox 01/20/20 07:51 36.6 C 68 17 151/76 H 99 01/20/20 03:30 36.5 C 69 18 164/100 H 92 01/19/20 23:28 36.6 C 69 18 162/99 H 100 He is awake alert and oriented x3 this morning. He is moving all extremities appropriate. HEENT: 2+ carotid upstrokes no carotid bruits Lungs: Clear to auscultation bilaterally no rales rhonchi or wheezing Heart regular rate and rhythm no appreciable murmurs rubs or gallops Abdomen soft and tenderness and a positive bowel sounds Extremities no clubbing cyanosis or edema; 2+ right radial pulse Psychiatric his affect appeared appropriate EKG: Normal sinus rhythm normal ECG His inpatient laboratory studies as well as his diagnostic imaging studies were reviewed. Impressions: 1. Change in mental status with a negative work-up including MRI MRA and carotid ultrasound 2. Non-ST elevation myocardial infarction with a peak troponin of 1.1 3. Likely obstructive sleep apnea with a dilated right ventricle 4. Chronic kidney disease with a creatinine of 1.5 5. Normal ECG 6. Likely untreated hypertension leading to chronic kidney disease 7. Normal LV size and function ambulate --- if ok D/c Cardiac rehab ASA 81 mg Plavix x 1 year -- discussed if need to stop plavix for any reason in next year to contact us; discussed risk of stent thrombosis Toprol 25mg QHS Increase lisinopril to 10mg daily Atorva daily with Co Q 10 200mg daily Will arrange for f/u in 10-14 days in office BMP in 10 days Discussed post cath instructions please give upon d/c
--- NOTE | 2020-01-20 09:36 | Discharge Summary ---
Date of Service January 20, 2020 Admission HPI Per Admitting Provider The patient is a 64-year-old male with a past medical history including gout, hyperlipidemia, muscle spasm and arthritis of the shoulders. He reports that he had a usual day yesterday, went to sleep tonight as usual, and when he awoke to go the bathroom he felt disoriented, had difficulty walking to the bathroom, and his reports that he completely missed the commode while he was urinating. He denies any focal weakness in arms or legs, numbness or tingling and denies any chest pain or shortness of breath. He does report his right shoulder is a little bit sore, but he thinks that was from being taken out of the house into the ambulance. He denies any previous occurrence of any such symptoms. Principal Diagnosis nstemi Discharge Exam Constitutional WD/WN, vitals as above no acute distress Eyes PERRL, conjunctivae normal, anicteric sclerae ENMT external ear and nose normal, oropharynx normal Mouth: + tongue abnormality (R sided tongue laceration) Respiratory normal respiratory effort, lungs clear to auscultation Cardiovascular RRR, no murmur, no edema Gastrointestinal (Abdomen) normal bowel sounds, soft, nontender, no hepatosplenomegaly Musculoskeletal TTP proximal anterior humerus No TTP along distal/proximal head biceps Pain elicited on empty cans test Limited ROM abduction, IR Overall good strength Skin + ecchymosis (large area along medial aspect of R UE) Psychiatric A+Ox3, euthymic affect Discharge Data Allergies Allergy/AdvReac Type Severity Reaction Status Date / Time No Known Allergies Allergy Unverified 01/17/20 03:28 Consultations 01/17/20 05:13 ED Decision to Admit Stat 01/17/20 07:32 Consult Case Management - Discharge Planning Routine Consult Neurology Routine 01/17/20 09:04 Consult Cardiology Routine 01/18/20 14:04 Consult Cardiac Catheterization Routine 01/19/20 16:40 Consult Cardiac Rehabilitation Routine Procedures Performed Operation Date: 01/19/20 14:00 Actual Procedures p Cath, Left with Cors and Vent - Juan Carlos Baxter MD s Drug Eluting Stent SGl Vessel - Juan Carlos Baxter MD s Cineradiography w/Routine Exam - Juan Carlos Baxter MD Ordered Studies 01/17/20 03:25 CT head/brain wo con Urgent 01/17/20 07:32 MR angio head wo con Stat MR brain wo con Routine US carotid doppler BI Stat 01/19/20 07:06 CL Cath Imgs for PACS use only Routine Hospital Course (1) Elevated troponin: 64 yo with PMH obesity, dyslipidemia, stage III chronic kidney disease presents after confusion and tongue bitting event that was initially concerning for seizure. Also found to have elevated troponin that continued to rise w/o chest pain or pressure. The following was the medical management during stay here: Elevated Troponin/NSTEMI/CAD - ECG unremarkable, echocardiogram showed no regional wall motion abnormalities -peaked at 1.1, potentially contributed by an episode of cerebral hypoperfusion due to a cardiac cause, demand ischemia and pt's CKD, in setting of atypical R shoulder pain so ACS suspicion as well -01/18 Cath: Severe single vessel coronary artery disease--70% acute appearing mid RCA stenosis. Single ROLAND placed -will cont DAPT with ASA 81/ Plavix 75mg for one year - cont medication management with atorvastatin 40mg with Co Q 10 200mg daily, Toprol XL 25 mg, Lisinopril 10 mg - cardiac Rehab on d/c. Dr. Dyer f/u in 10-14 days in office will be arranged Confusion, w/ tongue bitting concerning for seizure - CT head negative - unremarkable MRA/MRI - carotid duplex w/ mild plaque w/o stenosis - EEG did not show epileptic activity - ECHO, w/ EF 60-65% and nl. wall motion - neurology consulted and no indication for antiepileptics at this point-- Event possibly isolated nocturnal convulsion, incomplete arousal with transient sleep paralysis -medical management with atorvastatin 40mg, ASA 81 as above ALEXA, in the setting of CKD -improved with IVF -CKD likely from untreated HTN --started Lisinopril as above. Will check BMP in 10 days, script given pHTN, w/ concern for untreated sleep apnea - ECHO: EF 60-65%, right ventricle is dilated and pulmonary pressure is 40 mmHg. - patient would likely benefit from an outpatient sleep study, can arrange for as outpt Right shoulder pain -multiple likely etiologies contributing-- increased exercise regimen during quarantine leading up to admission, EMS pulled hard on shoulder on initial encounter per - examination concerning for rotator cuff tendinopathy - Acetaminophen PRN, and Voltaren cream QID DVT Prophylaxis: Heparin SQ. At time of d/c, pt with no other acute concerns or complaints. Total Time Total Time Spent Total Time Spent (In Minutes): 30 Discharge Plan Discharge Items Patient Disposition: Home - Self-Care Reason For Visit: cva Discharge Diagnosis: CAD Activity: Per Instructions section Non-emergency contact: Primary Care Provider Call non-emergency contact if: you have any medication questions, your symptoms worsen and your pain is not controlled Follow-up/Referrals: David Ramsay III, MD [Primary Care Provider] - 01/26/20 8:30 am (APPT @ DR. RAMSAY'S OFFICE WITH RADHA LOWERY) Diet: Heart Healthy Ambulatory Orders: Basic Metabolic Panel (Routine) Timeframe: 10 Day Location: Determined by Patient Ordered By: Juan Sharp Attending Provider Instructions: You were admitted with concerns of atypical chest pain and shoulder pain along with some possible confusion episode. As far as the confusion episode, the workup we did here including head imaging, heart ultrasound, carotid ultrasound was largely unremarkable. Neurology did not see the need to start any anti- seizure medications at this time. Regarding the heart, your heart injury markers were increased during this admission, so we did a catheterization and found a blockage in one of your arteries and placed a stent. Please follow the below instructions on d/c: -please follow up with your PCP within one week of discharge. This will be arranged for you -New medications sent to your pharmacy: aspirin 81 mg and Plavix 75mg to be taken for one year. Additional medications to be taken indefinitely: atorvastatin 40mg with Co Q 10 200mg daily, Toprol XL 25 mg, Lisinopril 10 mg daily -we will make arrangements for outpatient follow up for both cardiac Rehab and an appt with Dr. Dyer in 10-14 days -we will check some blood work (BMP) in 10 days, script given -for your shoulder pain, continue Acetaminophen and Voltaren cream Pending Studies at Discharge: No Stand-Alone Forms: Medications to Prevent Stroke, My [facility] [employer], Smoking Cessation Medications and DC Order Prescriptions: New aspirin 81 mg tablet,delayed release (DR/EC) 81 mg PO DAILY Qty: 30 RF: 0 metoprolol succinate [Toprol XL] 25 mg tablet extended release 24 hr 25 mg PO HS Qty: 30 RF: 0 clopidogrel [Plavix] 75 mg tablet 75 mg PO DAILY Qty: 30 RF: 0 atorvastatin 40 mg tablet 40 mg PO DAILY Qty: 30 RF: 0 lisinopril 10 mg tablet 10 mg PO DAILY Qty: 30 RF: 0 coenzyme Q10 200 mg capsule 200 mg PO DAILY Qty: 30 RF: 0 diclofenac sodium [Voltaren] 1 % gel 2 gm TOP QID Qty: 100 RF: 0 Continued cyclobenzaprine 10 mg tablet 10 mg PO HS PRN (Reason: Muscle Spasm) RF: 0 colchicine 0.6 mg tablet See Rx Instructions PO DAILY PRN (Reason: gout ) RF: 0 omega-3 fatty acids [Fish Oil Concentrate] 1,000 mg capsule 2,000 mg PO DAILY RF: 0 Hempvanna Cream 1 applic topical UD PRN (Reason: Pain) RF: 0 Discontinued simvastatin [Zocor] 40 mg tablet 40 mg PO HS Qty: 90 RF: 3 Discharge Orders: Discharge Order (Routine); Ordered 01/20/20 Ordered By: Juan Eason Admission Data Admit Date/Time: 01/17/20 05:49 Attending Provider: Sylvia Spencer Admit Provider: Mitesh Alfredo Primary Care Provider: David Ramsay III Other Providers: Mitesh Alfredo ; Jaden Rouse ; Sandip Dyer ; Juan Carlos Baxter Other Interventions: Discharge Summary Assessment (RN) Last Done: 01/20/20 11:14 DC Date/Time DO NOT enter until pt leaves facility: 01/20/20 12:08 Supervising Physician Co-Signing Physician Notes Patient seen and examined with PGY-2 Dr. Eason. Agree with history, exam findings, assessment and plan of care as outlined by Dr. Eason. In brief, Mr. Shipman is a 64 year old male with no significant medical history admitted following an episode of confusion, tongue biting. Today, he reports feeling well. Denies chest pain, shortness of breath. His right shoulder is still bothering him, but it is improved compared to yesterday. VS, labs and nursing notes reviewed. Heart with normal rate and rhythm. No murmur, rub or gallop. No peripheral edema. 1. Altered mental status. Possibly seizure type episode. Seen by neuro. No chronic anti-epileptic drugs required at this point. MRI/MRA on admission with m oderate atrophy, moderate chronic small vessel disease. CVA/TIA work up otherwise unremarkable. 2. CAD. Cardiac cath today with 70% blockage in the mid RCA, s/p drug eluting stent. Mild to moderate disease: 30% diffuse proximal to mid LAD, 40% proximal ramus, moderate diffuse mid to distal circumflex up to 50%. Switched to high intensity statin, started DAPT x 1 year, metoprolol LX 25mg, added lisinopril 10mg. Cardiac rehab consult. 3. right shoulder pain. acute rotator cuff tendinopathy likely with ?LHB tendinopathy. Low suspicion for biceps tear. Ok to continue voltaren gel. Can do PT as an outpatient. 4. Pulm HTN/elevated right heart pressures seen on Echo. Likely due to JESSICA. Can have sleep study done as an outpatient. Dispo: Dc home today. Follow up with PCP in 1 week, follow up with Dr. Dyer in 1-2 weeks. I personally spent 25 minutes discharge planning for this patient. Resident Activity Tracking Resident Involvement: Resident Care Provided Care Provided: Adult Hospital Medicine
[2020-01-20] MEDS ORDERED: STROKE PATIENT DISCHARGE STA (10:30)
--- NOTE | 2020-01-20 10:49 | Pharmacy Report ---
Pharmacist Stroke Counseling - Date of Service January 20, 2020 - Scope: Pharmacy has been consulted to provide medication discharge counseling for this patient admitted with CAD as per the Pharmacist Discharge Counseling for Stroke Patients Protocol. - Medications on Discharge: Home Medications Medication Instructions Recorded Confirmed omega-3 fatty acids 1,000 mg 2,000 mg PO DAILY cap 03/10/19 01/17/20 capsule colchicine 0.6 mg tablet See Rx Instructions PO DAILY PRN 05/30/19 01/17/20 tab cyclobenzaprine 10 mg tablet 10 mg PO HS PRN 05/30/19 01/17/20 Hempvanna Cream 1 applic TOPICAL UD PRN 01/17/20 New Rx's Medication Instructions Recorded simvastatin 40 mg tablet 40 mg PO HS #90 tab 04/22/19 aspirin 81 mg PO DAILY #30 tab 01/20/20 atorvastatin 40 mg PO DAILY #30 tab 01/20/20 clopidogrel [Plavix] 75 mg PO DAILY #30 tab 01/20/20 coenzyme Q10 200 mg PO DAILY #30 cap 01/20/20 diclofenac sodium [Voltaren] 2 gm TOP QID #100 gm 01/20/20 lisinopril 10 mg PO DAILY #30 tab 01/20/20 metoprolol succinate [Toprol XL] 25 mg PO HS #30 tab 01/20/20 - Action: The above medications, specifically ones for stroke treatment/prophylaxis, have been reviewed in detail with the patient prior to discharge. This includes indication, common adverse reactions, drug interactions, and medication administration. Medication counseling has been employed using the teach-back method to ensure understanding. - Outcome: The patient demonstrated understanding of the medications. Additional comments: - Patient without an acute stroke but did required a ROLAND which will require DAPT x 1 year - Counseling performed over the phone due to COVID-19 pandemic - Patient was given ample time to have any/all questions answered - Demonstrated good understanding of new medications Thank you for allowing pharmacy to be involved in the care of this patient. Please call [phone] with any additional questions
--- NOTE | 2020-01-20 12:16 | Electrocardiogram Report ---
Test Reason : Blood Pressure : / mmHG Vent. Rate : 067 BPM Atrial Rate : 067 BPM P-R Int : 148 ms QRS Dur : 088 ms QT Int : 408 ms P-R-T Axes : 029 013 031 degrees QTc Int : 431 ms Normal sinus rhythm Normal ECG When compared with ECG of 18-JAN-2020 11:01, No significant change was found Confirmed by Boni Chris ([id number]) on 01/20/2020 12:15:30 PM Referred By: REFERRED SELF Confirmed By:Delfino Chris
== END 2020-01-20 12:08 | disposition home or self-care (01) | DRG 249 ==
LOC: 2S 03:04 → ED 03:04 → SUATTDRO 05:49 → OBSVTOIN 05:49 → 2S 06:45